=== PATIENT | male | born 1945 | race Caucasian/White ===

== ENCOUNTER 2020-12-03 08:55 | Outpatient (REF) | payer MEDICARE, SELFPAY ==
[2020-12-03 10:47] LABS: Alanine Aminotransferase 18 U/L (0-40); Albumin Level 4.2 g/dL (3.5-5.0); Alkaline Phosphatase 55 U/L (39-117); Anion Gap 13 (12-20); Aspartate Amino Transferase 24 U/L (5-37); Bilirubin Total 0.8 mg/dL (0.0-1.0); Blood Urea Nitrogen 9 mg/dL (9-16); Calcium 9.4 mg/dL (8.4-10.2); Carbon Dioxide 28 mmol/L (22-29); Chloride 102 mmol/L (96-108); Estimated Glomerular Filt Rate > 60; Glucose Fasting 110 mg/dL (60-99); Potassium 4.3 mmol/L (3.3-5.1); Sodium 139 mmol/L (135-145)
== END 2020-12-03 08:56 | disposition home or self-care (01) ==
LOC: HO.LAB 08:55
PROVIDERS: PCP Internal Medicine; Visit Provider Nurse Practitioner Family
DX: Z13.1 Encounter for screening for diabetes mellitus (principal)
CPT/HCPCS: 36415; 80053

== ENCOUNTER 2020-12-06 12:01 | Outpatient (REF) | payer MEDICARE, SELFPAY ==
--- NOTE | ~2020-12-06 | XR_ITS ---
EXAMINATION: XR KNEE, LEFT CLINICAL INFORMATION: Pain. COMPARISON: Most recent left knee radiographs dated 01/10/2018. TECHNIQUE: 4 views of the left knee. FINDINGS: Severe medial compartment joint space narrowing with subchondral sclerosis and focal subchondral cystic change. Tricompartmental marginal osteophytes. No acute fracture or dislocation. Trace joint effusion. XR/XR knee LT 2V IMPRESSION: Tricompartmental osteoarthritis, most severe within the medial compartment. Findings are slightly progressed when compared to the prior examination. Trace joint effusion.
== END 2020-12-06 12:02 | disposition home or self-care (01) ==
LOC: HO.XRAY 12:01
PROVIDERS: PCP Internal Medicine; Visit Provider Internal Medicine
DX: M25.562 Pain in left knee (principal)
CPT/HCPCS: 73560

== ENCOUNTER → 2020-12-26 08:42 | Outpatient (BNVA) | payer MEDICARE, SELFPAY | PROVIDERS: PCP Internal Medicine; Visit Provider Physician Assistant | DX: M17.12 Unilateral primary osteoarthritis, left knee (principal) | CPT/HCPCS: 20610; 99202; J1040 ==

== ENCOUNTER → 2021-02-07 09:43 | Outpatient (BNVA) | payer MEDICARE, SELFPAY | PROVIDERS: PCP Internal Medicine; Visit Provider Physician Assistant | DX: M17.12 Unilateral primary osteoarthritis, left knee (principal) | CPT/HCPCS: 99212 ==

== ENCOUNTER 2021-02-25 10:00 | Outpatient (RCR) | payer MEDICARE, SELFPAY ==
--- NOTE | 2021-02-07 07:45 | MHC.PT.OD ---
[facility] [place] Office [place] Office [place] Office [address] Jimmie Pollard [address] [phone] F: [phone] F: [phone] F: [phone] F: [phone] Physical Therapy Daily Note Diagnosis: Unilateral primary OA L knee signed by Cleo Black PA-C date of referral 12/26/20 Date of Surgery: Date of Evaluation: 12/31/20 Date of Treatment: 02/06/21 Treatments to Date: Cancellations to Date: No Shows to Date: Authorized Visits: 6 Insurance End Date: Precautions/ Contraindications:HTN, L knee medial OA severe per xray Subjective: Doing better but I still dont feel confident carrying something and going down the stairs. Pain Score and Location: Objective Flowsheet: Tests & Measures Full extension today AROM Exercises Reviewed progression of using gentle gradual resistance for home bike- pt currently states has been able to bike 25 minutes with good tolerance, we discussed progression of increasing time on bike, use of various strenth settings Step up and step down from 8 inch with use of unilateral rail with and without holding 8.8 lb med ball, BOSU step ups and step down (blue side up) leading with L LE with use of unilateral rail with and without holding 8.8 lb med ball, lateral step ups onto bosu leading with L>R LE and R>L LE with use of unilateral rail multi step lateral and frontal heel touches from 4 inch L LE in stance x 2 [id number], Wobble board weight shifts balancing in coronal plane x 2 sets 10R with cues for weight shift. Prone for STM to distal HS> gastroc soleus complex; HS followed by four I strips (applied in knee ext stretch) for support/stretch HS proximal gastroc soleus complex. Encouragement to resume walking program, self care for education with bike, review with stretching program Modalities US at noted above Assessment: Pt presents with full knee extension, reports overall less pain in the knee. Pt expressing would like to continue PT 1x/weekly to progress CKC and higher level stab program to improve confidence for carrying objects up/down stairs. To see ortho tomorrow re: follow up. Pt encouraged to continue walking progam, bike program, and advance to 3 sets of 10R 4 way SLR as able (has been doing 20). PT Plan: flexbility program gastroc soleus HS, bike, SLR into flexion 4 way SLR for strengthening Short Term Goals: 1. Pt will demonstrate L knee AROM ext to 0 degrees. 2. Strength SLR to good on L LE. 3. Initiate HEP program with education re: self care. 4. Reduce L knee pain by 25% during ADLs/IADLS. Composition Siding Worker Goals: 1. AROM L knee 0-130 degrees. 2. Strength L knee A) SLR 5/5, B) HS 5/5. 3. Resume walking program MOD I. 4. Demonstrate functional squat with good technique. 5. Negotiate a flight of stairs Electronically signed by: Jodi Bañuelos, PT, DPT
--- NOTE | 2021-02-25 11:55 | MHC.PT.OD ---
[facility] [place] Office [place] Office [place] Office [address] Jimmie Pollard [address] [phone] F: [phone] F: [phone] F: [phone] F: [phone] Physical Therapy Daily Note Diagnosis: Unilateral primary OA L knee signed by Cleo Black PA-C date of referral 12/26/20 Date of Surgery: Date of Evaluation: 12/31/20 Date of Treatment: 02/25/21 Treatments to Date: Cancellations to Date: No Shows to Date: Authorized Visits: 8 Insurance End Date: Precautions/ Contraindications:HTN, L knee medial OA severe per xray Subjective: Just out of the blue its puffy back there again. I had been wearing the compressive sleeve, now its sore in the front. Pain Score and Location: Objective Flowsheet: Tests & Measures R LE AROM 0 to 138 degres L LE -3 to 125 sx end range flexion, Noted bulge posterior knee crease consistent for potential bakers cyst (Pt reports previous history of one in same knee) Tenderness noted posterior L knee Anterior medial joint line- severe OA noted on xray L knee 36cm 37 cm 32.5 cm R knee 36 cm 36 cm infra 32.0 cm 10 [facility] [address] [place] [address] Office Visit Report Signed Patient: Geovani Rosa EMR#: [id number] : [id number]:[id number] Age/Sex: 75 / MADM/SER Date: 02/07/21 Loc: HO.HOSADM/SER Time:942 Attending Provider: Jin Black PA-C cc: Jroge A Elliott MD; Jin Black PA-C~ Intake Vital Signs 02/07/21 09:48 Height 5 ft 8 in Weight 173 lb BMI 26.3 Temp 97.3 F Temp Source Temporal Artery Scan Intake Visit Reasons: ov- s/p L knee inj Intake Note: Geovani presents here today for s/p Left knee inj 12/26/2020. He states he has been doing good with PT and the injection he recieved. He does have some anterior knee discomfort but states PT has been working with him. Allergies No Known Allergies [No Known Allergies*] Allergy (Verified 12/26/20 08:46) HPI ov- s/p L knee inj HPI Details 75-year-old gentleman who returns to the office today approximately 6 weeks status post left knee injection. He has been doing physical therapy and he feels that he is getting good relief from both. He is able to perform daily activities without any discomfort. [facility] Medical History Hypertension Screening for diabetes mellitus Surgical History H/O rectal polypectomy History of colonoscopy History of surgery History of tonsillectomy Family History Father Cancer Mother Heart disease Brother No problems noted. Brother No problems noted. Sister No problems noted. Sister No problems noted. Sister No problems noted. Son No problems noted. Daughter No problems noted. Daughter No problems noted. Family/Other Diabetes Social History Alcohol intake: never Patient Tobacco Use Status: Former Tobacco user Years Smoked: 20 years Current occupational status: retired Current occupation: rt hand Review of Systems Const All systems reviewed & are unremarkable except as noted in HPI and below Physical Exam Vital Signs: Last Vital Signs Temp 97.3 F 02/07/21 09:48 BMI result Body Mass Index 26.3 Extrem Other: Left knee normal to inspection. No joint effusion. Full range of motion with crepitus. Calf supple nontender. Assessment & Plan Assessment & Plan (1) Arthritis of left knee: Code(s): M17.12 - Unilateral primary osteoarthritis, left knee Plan: 75-year-old gentleman with left knee arthritis. He had significant relief with the injection and continues to work with physical therapy. I told him that he can have an injection every 3-6 months as needed. If symptoms arise he will contact our office otherwise p.r.n. Coding Level of Care Code Est Pt Level 3 (92527) Diagnoses Arthritis of left knee M17.12 Documented By:Jin Black02/07/21 0992 Signed By:<Electronically signed by Kain-Tashia Black>02/07/21 0957 Exercises Encouragement to continue with HEP bike program Review of 4 way SLR, TKE, gastroc/hs stretches hep program prostretch Reassessment strength girth, rom as noted above Unable to perform SLS due to pain L knee, fair unsupported functional squat- limited tolerance for mini wall slide due to pain anterior knee Pt given educational handout re: acevedo's cyst to increase patient questions he had around such a condition- reports [facility] diagnosed him as having one in L knee in the past. Passive knee extension stretch with heel prop for icing x 10 minute post eval/tx. Educated in use for home. Wobble board weight shifts balancing in coronal plane x 2 sets 10R with cues for weight shift. Prone for STM to distal HS> gastroc soleus complex via HG #8 in effort to increase tissue extensibility; HS followed by four I strips ROCKTAPE (applied in knee ext stretch) for support/stretch HS proximal gastroc soleus complex. Pt advised to back off from use of compressive sleeve as this is what he has been doing differently over the past few days. Phone call placed to orthopedics to aide in patient getting an appt for follow up 03/27 at 3:30 pm - Cleo Black PA-C. Modalities Prone for continuous US 1.2 yu cm2 3.3MHz to R proximal gastroc soleus complex in effort to increase tissue extensibilituy. Assessment: Pt demonstrates signs and symptoms consistent with L bakers cyst presents with decline in active knee extension, palpable edema posterior crease of L knee. ROM mildly impaired compared to R Knee. He has improved strength of quad since starting therapy. He has begun to demonstrate plateauing progress with therapy and is compliant with a daily stretching, biking program at home. He was encouraged to perform passive knee extension stretch at home and initiate icing in conjunction with current stretching program. PT Plan: flexbility program gastroc soleus HS, bike, SLR into flexion 4 way SLR for strengthening Short Term Goals: 1. Pt will demonstrate L knee AROM ext to 0 degrees. 2. Strength SLR to good on L LE. 3. Initiate HEP program with education re: self care. 4. Reduce L knee pain by 25% during ADLs/IADLS. R&D Lab Technician Goals: 1. AROM L knee 0-130 degrees. 2. Strength L knee A) SLR 07/10, B) HS 07/10. 3. Resume walking program MOD I. 4. Demonstrate functional squat with good technique. 5. Negotiate a flight of stairs Electronically signed by: Jodi Bañuelos, PT, DPT
== END 2021-07-08 07:52 | disposition home or self-care (01) ==
LOC: HO.PTWFD 10:00
PROVIDERS: Visit Provider Physician Assistant
DX: M17.12 Unilateral primary osteoarthritis, left knee (principal)
CPT/HCPCS: 97035; 97110; 97140; 97161; 97535

== ENCOUNTER → 2021-03-27 15:13 | Outpatient (BNVA) | payer MEDICARE, SELFPAY | PROVIDERS: PCP Internal Medicine; Visit Provider Physician Assistant | DX: M17.12 Unilateral primary osteoarthritis, left knee (principal) | CPT/HCPCS: 20610; 99212; J1040 ==

== ENCOUNTER 2021-09-02 09:13 | Outpatient (REF) | payer MEDICARE, SELFPAY ==
[2021-09-02 09:40] LABS: MANUAL DIFF FLAG NO
[2021-09-02 10:31] LABS: Basophils Percent Auto 0.6 % (0-2); Eosinophils Absolute Auto 0.1 X10*3/uL (0.0-0.4); Eosinophils Percent Auto 2.1 % (0-4); Hematocrit 43.4 % (42.0-52.0); Hemoglobin 14.8 g/dl (14.0-18.0); Imm Gran Abs Auto 0.01 X10*3/uL (0.00-0.03); Imm Gran Pct Auto 0.2 % (0.0-0.4); Lymphocytes Absolute Auto 1.7 X10*3/uL (1.2-4.9); Lymphocytes Percent Auto 34.4 % (20-40); Mean Corpuscular HGB Conc 34.1 g/dl (31.0-36.0); Mean Corpuscular Hemoglobin 29.2 pg (27.0-33.0); Mean Corpuscular Volume 85.8 fL (80.0-98.0); Mean Platelet Volume 8.8 fL (9.4-12.4); Monocytes Absolute Auto 0.3 X10*3/uL (0.1-1.2); Monocytes Percent Auto 6.4 % (2-11); Neutrophils Absolute Auto 2.7 x10*3/uL (2.0-8.3); Neutrophils Percent Auto 56.3 % (45-73); Platelet Count 292 X10*3/uL (160-400); Red Blood Count 5.06 X10*6/uL (4.60-5.80); White Blood Count 4.8 X10*3/uL (4.8-10.8)
[2021-09-02 11:18] LABS: Alanine Aminotransferase 16 U/L (0-40); Albumin Level 4.2 g/dL (3.5-5.0); Alkaline Phosphatase 54 U/L (39-117); Anion Gap 8 (12-20); Aspartate Amino Transferase 21 U/L (5-37); Bilirubin Total 0.6 mg/dL (0.0-1.0); Blood Urea Nitrogen 11 mg/dL (9-16); Calcium 9.3 mg/dL (8.4-10.2); Carbon Dioxide 33 mmol/L (22-29); Chloride 102 mmol/L (96-108); Cholesterol 214 mg/dL; Estimated Glomerular Filt Rate > 60; Glucose Fasting 109 mg/dL (60-99); HDL Cholesterol 46 mg/dL; LDL Cholesterol Calculated 143 mg/dl; Potassium 4.4 mmol/L (3.3-5.1); Sodium 139 mmol/L (135-145); Total Protein 6.9 g/dL (6.5-8.0); Triglycerides 127 mg/dL
== END 2021-09-02 09:14 | disposition home or self-care (01) ==
LOC: HO.LAB 09:13
PROVIDERS: PCP Internal Medicine; Visit Provider Internal Medicine
DX: Z00.00 Encounter for general adult medical examination without abnormal findings (principal); I10 Essential (primary) hypertension; Z13.0 Encounter for screening for diseases of the blood and blood-forming organs and certain disorders involving the immune mechanism
CPT/HCPCS: 36415; 80053; 80061; 85025

== ENCOUNTER 2021-12-02 08:48 | Outpatient (REF) | payer MEDICARE, SELFPAY ==
--- NOTE | ~2021-12-02 | US_ITS ---
EXAMINATION: US RETROPERITONEAL LIMITED (RENAL ONLY) CLINICAL INFORMATION: Flank pain. COMPARISON: CT abdomen and pelvis 09/12/2010. X-ray abdomen KUB 08/28/2010. TECHNIQUE: Real-time imaging of the kidneys. FINDINGS: RIGHT KIDNEY: 10.5 x 6.6 x 4.4 cm (SAG x AP x TRV). The kidney is normal in size, contour, and echogenicity. Renal cortical thickness is normal. No calculi or focal parenchymal lesions. No hydronephrosis. LEFT KIDNEY: 11.5 x 5.3 x 4.4 cm (SAG x AP x TRV). The kidney is normal in size, contour, and echogenicity. Renal cortical thickness is normal. No calculi or focal parenchymal lesions. No hydronephrosis. US/US renal BI IMPRESSION: Unremarkable examination.
== END 2021-12-02 08:49 | disposition home or self-care (01) ==
LOC: HO.US 08:48
PROVIDERS: Visit Provider Internal Medicine
DX: R10.9 Unspecified abdominal pain (principal)
CPT/HCPCS: 76775

== ENCOUNTER → 2022-05-08 11:15 | Outpatient (BNVA) | payer MEDICARE, SELFPAY | PROVIDERS: PCP Internal Medicine; Visit Provider Physician Assistant | DX: M17.12 Unilateral primary osteoarthritis, left knee (principal); M71.22 Synovial cyst of popliteal space [Baker], left knee; I10 Essential (primary) hypertension | CPT/HCPCS: 20610; 99212; J1040 ==

== ENCOUNTER 2022-08-25 09:33 | Outpatient (REF) | payer MEDICARE, SELFPAY ==
[2022-08-25 09:46] LABS: MANUAL DIFF FLAG NO
[2022-08-25 10:25] LABS: Basophils Absolute Auto 0.1 X10*3/uL (0.0-0.2); Basophils Percent Auto 1.5 % (0-2); Eosinophils Absolute Auto 0.1 X10*3/uL (0.0-0.4); Eosinophils Percent Auto 1.5 % (0-4); Hematocrit 43.5 % (42.0-52.0); Imm Gran Abs Auto 0.01 X10*3/uL (0.00-0.03); Imm Gran Pct Auto 0.2 % (0.0-0.4); Lymphocytes Absolute Auto 1.9 X10*3/uL (1.2-4.9); Mean Corpuscular HGB Conc 34.5 g/dl (31.0-36.0); Mean Corpuscular Hemoglobin 29.6 pg (27.0-33.0); Mean Corpuscular Volume 85.8 fL (80.0-98.0); Mean Platelet Volume 9.2 fL (9.4-12.4); Monocytes Absolute Auto 0.3 X10*3/uL (0.1-1.2); Monocytes Percent Auto 6.5 % (2-11); Neutrophils Absolute Auto 2.5 x10*3/uL (2.0-8.3); Neutrophils Percent Auto 51.3 % (45-73); Platelet Count 238 X10*3/uL (160-400); Red Blood Count 5.07 X10*6/uL (4.60-5.80); Red Cell Distribution Width 14.2 % (11.0-16.0); White Blood Count 4.8 X10*3/uL (4.8-10.8)
[2022-08-25 11:16] LABS: Alanine Aminotransferase 14 U/L (0-40); Albumin Level 4.2 g/dL (3.5-5.0); Alkaline Phosphatase 56 U/L (39-117); Anion Gap 15 (12-20); Aspartate Amino Transferase 24 U/L (5-37); Bilirubin Total 1.1 mg/dL (0.0-1.0); Blood Urea Nitrogen 9 mg/dL (9-16); Calcium 9.7 mg/dL (8.4-10.2); Carbon Dioxide 28 mmol/L (22-29); Chloride 101 mmol/L (96-108); Estimated Glomerular Filt Rate > 60; Glucose Fasting 105 mg/dL (60-99); Potassium 3.2 mmol/L (3.3-5.1); Sodium 141 mmol/L (135-145); Total Protein 7.1 g/dL (6.5-8.0)
[2022-08-25 11:21] LABS: Thyroid Stimulating Hormone 2.55 uIU/mL (0.32-4.0)
== END 2022-08-25 09:34 | disposition home or self-care (01) ==
LOC: HO.LAB 09:33
PROVIDERS: PCP Internal Medicine; Visit Provider Internal Medicine
DX: E03.9 Hypothyroidism, unspecified (principal); N28.9 Disorder of kidney and ureter, unspecified; D64.9 Anemia, unspecified
CPT/HCPCS: 36415; 80053; 84443; 85025

== ENCOUNTER 2023-01-21 09:20 | Outpatient (AMB) | payer MEDICARE, SELFPAY ==
[2023-01-21 09:25] VITALS: BP 148/70; PULSE 57; O2SAT 98; BMI 25.8
--- NOTE | 2023-01-21 09:25 | A.OFFPC_ITS ---
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: Not Required per policy Accompanied by: Self / Same As Patient Allergies No Known Allergies [No Known Allergies*] Allergy (Verified 01/21/23 09:26) Medication List - Last Reconciled 01/21/23 by Jorge A Elliott MD hydrochlorothiazide 25 mg PO DAILY metoprolol tartrate 50 mg PO DAILY Tobacco use date assessed: 09/11/22 Fall risk assessment: No Falls in past year Last assessed Fall Risk: 01/21/23 Dental Screening Dental Screen Date: 01/21/23 Did you have a dental visit in the last 12 months?: Yes Did you have a dental problem in the last 6 months where you did not have access to dental care?: No Was dental information given to patient?: Patient has dentist HPI 4 month f/u HPI Details HT on Rx; doing well; compliant [facility] Medical History Hypertension Screening for diabetes mellitus Surgical History H/O rectal polypectomy History of colonoscopy History of surgery History of tonsillectomy Family History Father Cancer Mother Heart disease Brother No problems noted. Brother No problems noted. Sister No problems noted. Sister No problems noted. Sister No problems noted. Son No problems noted. Daughter No problems noted. Daughter No problems noted. Family/Other Diabetes Social History Housing: House Alcohol intake: never Patient Tobacco Use Status: Former Tobacco user Years Smoked: 20 years e-Cigarette/Vaping Use: Never Used Second Hand Smoke Exposure: No service: No Current occupational status: retired Current occupation: rt hand Cognitive needs: No Hearing needs: No Vision needs: Yes Questionnaire PHQ-9 Over the last 2 weeks, how often have you been bothered by any of the following problems? Depression Screening Interpretation: Negative Depression Screening Done: Yes Source: Developed by Drs. Phan Frias, Maureen Ortiz, Yao Rausch and colleagues, with an educational josey from [employer]. Thrive Questionnaire Date Thrive assessed: 01/21/23 I am a: Patient What is your living situation today?: I have a steady place to live Within the past 12 months, did the food you bought not last and you didn't have the money to get more?: Never true Within the past 12 months, did you worry whether your food would run out before you got money to buy more?: Never true Do you have trouble paying for medicines?: No Do you have trouble getting transportation to medical appointments?: No Do you have trouble paying your heating and electricity bill?: No Do you have trouble taking care of your child, family member or friend?: No Do you have trouble with day-to-day activities such as bathing, preparing meals, shopping, managing finances, etc.?: No Are you currently unemployed and looking for a job?: No Are you interested in more education?: No Please select the resources that you would like help with: None AUDIT C Alcohol Use Questionnaire (AUDIT-C) 1. How often do you have a drink containing alcohol?: Never Total Score: 0 Score Reviewed/Action Taken: Yes UFNMI-7 AMB Questionnaire FUNMI-7 Date FUNMI - 7 assessed: 05/12/22 Source: Developed by Drs. Phan Frias, Maureen Ortiz, Yao Rausch and colleagues, with an educational josey from [employer]. Review of Systems Const Denies chills, Denies headache(s) and Denies weight loss ENT Denies headache(s) Card Denies chest pain, Denies syncope, Denies irregular heart rhythm and Denies d yspnea Resp Denies chest congestion, Denies cough and Denies dyspnea GI Denies abdominal pain, Denies change in stool character, Denies nausea and Den ies vomiting Musc Denies deformity and Denies joint swelling Neuro Denies syncope and Denies headache(s) Physical exam (Primary Care) Vital Signs: Last Vital Signs Pulse 57 01/21/23 09:25 BP 148/70 H 01/21/23 09:25 Pulse Ox 98 01/21/23 09:25 Oxygen Delivery Method Room Air 01/21/23 09:25 BMI result Body Mass Index 25.8 Tobacco/Smoking Status: Tobacco use Status Tobacco use date assessed 09/11/22 01/21/23 09:29 Patient Tobacco Use Status Former Tobacco user 01/21/23 09:29 e-Cigarette/Vaping Use Never Used 01/21/23 09:29 Depression Screening Interpretation: Negative Thrive Assessment: Date of Thrive Assessment Date Thrive assessed 01/21/23 01/21/23 09:29 Const General: cooperative, comfortable, no acute distress and alert Neck Neck: Yes no lymphadenopathy Thyroid: Thyroid normal Resp Effort & Inspection: normal respiratory effort Auscultation: clear to auscultation bilaterally Percussion: percussion normal Cardio Jugular venous distension: no JVD Palpation: normal PMI Rate: regular rate Rhythm: regular rhythm Heart sounds: S1 normal heart sound present and S2 normal heart sound present GI Inspection: Yes normal to inspection Palpation (GI): No hepatosplenomegaly present Skin General skin exam: no rashes or lesions noted Extrem General: Yes no clubbing, cyanosis or edema Assessment and Plan Assessment & Plan (1) Hypertension: Code(s): I10 - Essential (primary) hypertension Qualifiers: Hypertension type: unspecified Qualified Code(s): I10 - Essential (primary) hypertension Plan: stable; same rx Coding Level of Care Code Est Pt Level 3 (79990) Diagnoses Hypertension, unspecified type I10 Hypertension type: unspecified
== END 2023-01-21 09:40 | disposition home or self-care (01) ==
PROVIDERS: PCP Internal Medicine; Visit Provider Internal Medicine
DX: I10 Essential (primary) hypertension (principal)
CPT/HCPCS: 99213

== ENCOUNTER 2023-05-17 09:21 | Outpatient (REF) | payer MEDICARE, SELFPAY ==
[2023-05-17 09:41] LABS: MANUAL DIFF FLAG NO
[2023-05-17 10:51] LABS: Basophils Absolute Auto 0.1 X10*3/uL (0.0-0.2); Basophils Percent Auto 0.9 % (0-2); Eosinophils Absolute Auto 0.1 X10*3/uL (0.0-0.4); Eosinophils Percent Auto 1.9 % (0-4); Hemoglobin 15.5 g/dl (14.0-18.0); Imm Gran Abs Auto 0.01 X10*3/uL (0.00-0.03); Imm Gran Pct Auto 0.2 % (0.0-0.4); Lymphocytes Absolute Auto 1.9 X10*3/uL (1.2-4.9); Lymphocytes Percent Auto 35.3 % (20-40); Mean Corpuscular HGB Conc 34.4 g/dl (31.0-36.0); Mean Corpuscular Hemoglobin 29.6 pg (27.0-33.0); Mean Platelet Volume 9.1 fL (9.4-12.4); Monocytes Absolute Auto 0.4 X10*3/uL (0.1-1.2); Neutrophils Absolute Auto 2.8 x10*3/uL (2.0-8.3); Neutrophils Percent Auto 53.7 % (45-73); Platelet Count 291 X10*3/uL (160-400); Red Blood Count 5.23 X10*6/uL (4.60-5.80); Red Cell Distribution Width 13.7 % (11.0-16.0); White Blood Count 5.3 X10*3/uL (4.8-10.8)
[2023-05-17 11:38] LABS: Alanine Aminotransferase 14 U/L (0-40); Albumin Level 4.3 g/dL (3.5-5.0); Alkaline Phosphatase 56 U/L (39-117); Anion Gap 11 (12-20); Aspartate Amino Transferase 22 U/L (5-37); Bilirubin Total 0.7 mg/dL (0.0-1.0); Blood Urea Nitrogen 11 mg/dL (9-16); Calcium 9.6 mg/dL (8.4-10.2); Carbon Dioxide 30 mmol/L (22-29); Chloride 104 mmol/L (96-108); Cholesterol 209 mg/dL (<200); Estimated Glomerular Filt Rate > 60; Glucose Fasting 106 mg/dL (60-99); HDL Cholesterol 51 mg/dL (>40); LDL Cholesterol Calculated 133 mg/dL (<100); Potassium 3.9 mmol/L (3.3-5.1); Sodium 141 mmol/L (135-145); Total Protein 7.3 g/dL (6.5-8.0); Triglycerides 126 mg/dL (<150)
== END 2023-05-17 09:22 | disposition home or self-care (01) ==
LOC: HO.LAB 09:21
PROVIDERS: PCP Internal Medicine; Visit Provider Internal Medicine
DX: D64.9 Anemia, unspecified (principal); E78.5 Hyperlipidemia, unspecified; N28.9 Disorder of kidney and ureter, unspecified
CPT/HCPCS: 36415; 80053; 80061; 85025

== ENCOUNTER 2023-05-25 11:19 | Outpatient (AMB) | payer MEDICARE, SELFPAY ==
[2023-05-25 11:22] VITALS: BP 118/80; PULSE 76; O2SAT 98; BMI 26.0
--- NOTE | 2023-05-25 11:22 | MHC.PC.OV ---
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 Animal Assisted Therapist: Not Required per policy Accompanied by: Self / Same As Patient Allergies No Known Allergies [No Known Allergies*] Allergy (Verified 05/25/23 11:23) Medication List - Last Reconciled 05/25/23 by Jorge A Elliott MD hydrochlorothiazide 25 mg PO DAILY metoprolol tartrate 50 mg PO DAILY Tobacco use date assessed: 05/25/23 Fall risk assessment: No Falls in past year Last assessed Fall Risk: 05/25/23 Dental Screening Dental Screen Date: 05/25/23 Did you have a dental visit in the last 12 months?: Yes Did you have a dental problem in the last 6 months where you did not have access to dental care?: No Was dental information given to patient?: Patient has dentist HPI 4 Month F/U HPI Details HTN on Rx; doing well and compliant [facility] Medical History Hypertension Screening for diabetes mellitus Surgical History History of colonoscopy History of surgery H/O rectal polypectomy History of tonsillectomy Family History Father Cancer Mother Heart disease Brother No problems noted. Brother No problems noted. Sister No problems noted. Sister No problems noted. Sister No problems noted. Son No problems noted. Daughter No problems noted. Daughter No problems noted. Family/Other Diabetes Social History Housing: House Alcohol intake: never Patient Tobacco Use Status: Former Tobacco user Years Smoked: 20 years e-Cigarette/Vaping Use: Never Used Second Hand Smoke Exposure: No service: No Current occupational status: retired Current occupation: rt hand Cognitive needs: No Hearing needs: No Vision needs: Yes (glasses) Questionnaire PHQ-9 Over the last 2 weeks, how often have you been bothered by any of the following problems? 1. Little interest or pleasure in doing things: not at all 2. Feeling down, depressed, or hopeless: not at all 3. Trouble falling or staying asleep, or sleeping too much: not at all 4. Feeling tired or having little energy: not at all 5. Poor appetite or overeating: not at all 6. Feeling bad about yourself - or that you are a failure or have let yourself or your family down: not at all 7. Trouble concentrating on things, such as reading the newspaper or watching television: not at all 8. Moving or speaking so slowly that other people could have noticed. Or the opposite - being so fidgety or restless that you have been moving around a lot more than usual: not at all 9. Thoughts that you would be better off or of hurting yourself in some way: not at all Total score: 0 Depression Screening Interpretation: Negative Depression Screening Done: Yes 13162 - PHQ-9 Billing: Yes Source: Developed by Drs. Phan Frias, Maureen Ortiz, Yao Rausch and colleagues, with an educational josey from [employer]. Thrive Questionnaire Date Thrive assessed: 05/25/23 I am a: Patient What is your living situation today?: I have a steady place to live Within the past 12 months, did the food you bought not last and you didn't have the money to get more?: Never true Within the past 12 months, did you worry whether your food would run out before you got money to buy more?: Never true Do you have trouble paying for medicines?: No Do you have trouble getting transportation to medical appointments?: No Do you have trouble paying your heating and electricity bill?: No Do you have trouble taking care of your child, family member or friend?: No Do you have trouble with day-to-day activities such as bathing, preparing meals, shopping, managing finances, etc.?: No Are you currently unemployed and looking for a job?: No Are you interested in more education?: No Please select the resources that you would like help with: None THRIVE Score: 0 AUDIT C Alcohol Use Questionnaire (AUDIT-C) 1. How often do you have a drink containing alcohol?: Never Total Score: 0 Score Reviewed/Action Taken: Yes FUNMI-7 AMB Questionnaire FUNMI-7 Date FUNMI - 7 assessed: 05/25/23 Feeling nervous, anxious, or on edge: 0 = Not at all Not being able to stop or control worryin = Not at all Worrying too much about different things: 0 = Not at all Trouble relaxin = Not at all Being so restless that it is hard to sit still: 0 = Not at all Becoming easily annoyed or irritable: 0 = Not at all Feeling afraid as if something awful might happen: 0 = Not at all Total FUNMI-7 score (0-4 normal; 5-9 mild; 10-14 moderate; 15-21 severe): 0 Source: Developed by Drs. Phan Frias, Maureen Ortiz, Yao Rausch and colleagues, with an educational josey from [employer]. FUNMI-7 Assessment Billing FUNMI-7 Assessment Tool: FUNMI-7 Assessment 89469 Review of Systems Const Denies chills, Denies headache(s) and Denies weight loss ENT Denies headache(s) Card Denies chest pain, Denies syncope, Denies irregular heart rhythm and Denies dyspnea Resp Denies chest congestion, Denies cough and Denies dyspnea GI Denies abdominal pain, Denies change in stool character, Denies nausea and Denies vomiting Musc Denies deformity and Denies joint swelling Neuro Denies syncope and Denies headache(s) Physical exam (Primary Care) Vital Signs: Last Vital Signs Pulse 76 05/25/23 11:22 BP 118/80 05/25/23 11:22 Pulse Ox 98 05/25/23 11:22 Oxygen Delivery Method Room Air 05/25/23 11:22 BMI result Body Mass Index 26.0 Tobacco/Smoking Status: Tobacco use Status Tobacco use date assessed 05/25/23 05/25/23 11:24 Patient Tobacco Use Status Former Tobacco user 05/25/23 11:24 e-Cigarette/Vaping Use Never Used 05/25/23 11:24 PHQ-9: PHQ-9 Score PHQ-9: Total score 0 05/25/23 11:24 Depression Screening Interpretation: Negative Thrive Assessment: Date of Thrive Assessment Date Thrive assessed 05/25/23 05/25/23 11:24 Const General: cooperative, comfortable, no acute distress and alert Neck Neck: Yes no lymphadenopathy Thyroid: Thyroid normal Resp Effort & Inspection: normal respiratory effort Auscultation: clear to auscultation bilaterally Percussion: percussion normal Cardio Jugular venous distension: no JVD Palpation: normal PMI Rate: regular rate Rhythm: regular rhythm Heart sounds: S1 normal heart sound present and S2 normal heart sound present GI Inspection: Yes normal to inspection Palpation (GI): No hepatosplenomegaly present Skin General skin exam: no rashes or lesions noted Extrem General: Yes no clubbing, cyanosis or edema Assessment and Plan Assessment & Plan (1) Hypertension: Code(s): I10 - Essential (primary) hypertension Qualifiers: Hypertension type: unspecified Qualified Code(s): I10 - Essential (primary) hypertension Plan: stable; same rx Orders: Orders Complete Blood Count Auto Diff Today D64.9 - Anemia, unspecified Thyroid Stimulating Hormone Today E03.9 - Hypothyroidism, unspecified Comprehensive [place]. Panel Fast Today N28.9 - Disorder of kidney and ureter, unspecified Lipid Panel Today E78.5 - Hyperlipidemia, unspecified Prostate Specific Antigen Scr Today Z00.00 - Encounter for general adult medical examination without abnormal findings Coding Level of Care Code Est Pt Level 3 (74860) Diagnoses Hypertension, unspecified type I10 Hypertension type: unspecified Additional Codes FUNMI-7 Assessment Billing - FUNMI-7 Assessment Tool: FUNMI-7 Assessment [id number] ([id number])
== END 2023-05-25 11:34 | disposition home or self-care (01) ==
PROVIDERS: PCP Internal Medicine; Visit Provider Internal Medicine
DX: I10 Essential (primary) hypertension (principal)
CPT/HCPCS: 99213

== ENCOUNTER 2023-09-28 09:31 | Outpatient (AMB) | payer MEDICARE, SELFPAY ==
[2023-09-28 09:32] VITALS: BP 126/82; PULSE 86; O2SAT 98; BMI 25.5
--- NOTE | 2023-09-28 09:32 | MHC.PC.OV ---
Vital Signs 09/28/23 09:32 Height 5 ft 8 in Weight 168 lb BMI 25.5 BP 126/82 Blood Pressure Location Lt brachial Position Sitting Pulse 86 Pulse Source Pulse Oximeter Pulse Oximetry (%) 98 Oxygen Delivery Method Room Air Intake Visit Reasons: 4mth f/u Family Dinner Service Specialist: Not Required per policy Accompanied by: Self / Same As Patient Allergies No Known Allergies [No Known Allergies*] Allergy (Verified 09/28/23 09:32) Tobacco use date assessed: 05/25/23 Fall risk assessment: No Falls in past year Last assessed Fall Risk: 09/28/23 Dental Screening Dental Screen Date: 05/25/23 HPI 4mth f/u HPI Details HTN on Rx; doing well; compliant [facility] Medical History Hypertension Screening for diabetes mellitus Surgical History History of colonoscopy History of surgery H/O rectal polypectomy History of tonsillectomy Family History Father Cancer Mother Heart disease Brother No problems noted. Brother No problems noted. Sister No problems noted. Sister No problems noted. Sister No problems noted. Son No problems noted. Daughter No problems noted. Daughter No problems noted. Family/Other Diabetes Social History Housing: House Alcohol intake: never Patient Tobacco Use Status: Former Tobacco user Years Smoked: 20 years e-Cigarette/Vaping Use: Never Used Second Hand Smoke Exposure: No service: No Current occupational status: retired Current occupation: rt hand Cognitive needs: No Hearing needs: No Vision needs: Yes (glasses) Questionnaire Thrive Questionnaire Date Thrive assessed: 05/25/23 FUNMI-7 AMB Questionnaire FUNMI-7 Date FUNMI - 7 assessed: 05/25/23 Source: Developed by Drs. Phan Frias, Maureen Ortiz, Yao Rausch and colleagues, with an educational josey from [employer]. Review of Systems Const Denies chills, Denies headache(s) and Denies weight loss ENT Denies headache(s) Card Denies chest pain, Denies syncope, Denies irregular heart rhythm and Denies dyspnea Resp Denies chest congestion, Denies cough and Denies dyspnea GI Denies abdominal pain, Denies change in stool character, Denies nausea and Denies vomiting Musc Denies deformity and Denies joint swelling Neuro Denies syncope and Denies headache(s) Physical exam (Primary Care) Vital Signs: Last Vital Signs Pulse 86 09/28/23 09:32 BP 126/82 09/28/23 09:32 Pulse Ox 98 09/28/23 09:32 Oxygen Delivery Method Room Air 09/28/23 09:32 BMI result Body Mass Index 25.5 Tobacco/Smoking Status: Tobacco use Status Tobacco use date assessed 05/25/23 09/28/23 09:33 Patient Tobacco Use Status Former Tobacco user 09/28/23 09:33 e-Cigarette/Vaping Use Never Used 09/28/23 09:33 Thrive Assessment: Date of Thrive Assessment Date Thrive assessed 05/25/23 09/28/23 09:33 Const General: cooperative, comfortable, no acute distress and alert Neck Neck: Yes no lymphadenopathy Thyroid: Thyroid normal Resp Effort & Inspection: normal respiratory effort Auscultation: clear to auscultation bilaterally Percussion: percussion normal Cardio Jugular venous distension: no JVD Palpation: normal PMI Rate: regular rate Rhythm: regular rhythm Heart sounds: S1 normal heart sound present and S2 normal heart sound present GI Inspection: Yes normal to inspection Palpation (GI): No hepatosplenomegaly present Skin General skin exam: no rashes or lesions noted Extrem General: Yes no clubbing, cyanosis or edema Assessment and Plan Assessment & Plan (1) Hypertension: Code(s): I10 - Essential (primary) hypertension Qualifiers: Hypertension type: unspecified Qualified Code(s): I10 - Essential (primary) hypertension Plan: stable; same rx Orders: Orders US arterial duplex LE RT Today I73.9 - Peripheral vascular disease, unspecified Lipid Panel Today Z13.220 - Encounter for screening for lipoid disorders Coding Level of Care Code Est Pt Level 3 (09528) Diagnoses Hypertension, unspecified type I10 Hypertension type: unspecified
== END 2023-09-28 09:50 | disposition home or self-care (01) ==
PROVIDERS: PCP Internal Medicine; Visit Provider Internal Medicine
DX: I10 Essential (primary) hypertension (principal)
CPT/HCPCS: 99213

== ENCOUNTER 2023-10-12 07:58 | Outpatient (REF) | payer MEDICARE, SELFPAY ==
--- NOTE | ~2023-10-12 | US_ITS ---
EXAMINATION: Noninvasive assessment of the right lower extremity with ARTERIAL DUPLEX CLINICAL INFORMATION: Hypertension, peripheral vascular disease TECHNIQUE: Duplex Doppler techniques with waveform analysis and measurement of velocities in the bilateral common femoral, profunda femoris, superficial femoral, popliteal and tibial arteries were performed. Additionally, ankle pulse volume recordings, ankle pressure measurements and ankle brachial indices were obtained of the lower extremity arterial system bilaterally. The study was performed only at rest. COMPARISON: None FINDINGS: DIRECT DUPLEX DOPPLER FINDINGS: RIGHT LEG: Common femoral artery: 122 cm/s, phasicity: Triphasic Profunda femoris artery: 59 cm/s, phasicity: Biphasic Superficial femoral artery (proximal): 81 cm/s, phasicity: Triphasic Superficial femoral artery (mid): 92 cm/s, phasicity: Triphasic Superficial femoral artery (distal): 74 cm/s, phasicity: Triphasic Popliteal artery: 64 cm/s, phasicity: Triphasic Posterior tibial artery: 77 cm/s, phasicity: Triphasic Peroneal artery: 49 cm/s, phasicity: Triphasic Anterior tibial artery: 72 cm/s, phasicity: Triphasic Dorsalis pedis artery: 96 cm/s, phasicity:Triphasic US/US arterial duplex LE RT IMPRESSION: No flow-limiting disease in the right lower extremity by velocity criteria. DANA Reference: - >1.4 = calcified vessels - 0.9 - 1.4 = normal - no significant arterial disease - 0.7 - 0.89 = mild peripheral arterial disease - 0.51 - 0.69 = moderate peripheral arterial disease - ? 0.50 = severe peripheral arterial disease - < .30 = critical arterial disease
== END 2023-10-12 07:59 | disposition home or self-care (01) ==
LOC: HO.US 07:58
PROVIDERS: PCP Internal Medicine; Visit Provider Internal Medicine
DX: I73.9 Peripheral vascular disease, unspecified (principal)
CPT/HCPCS: 93926

== ENCOUNTER 2023-10-18 14:47 | Outpatient (AMB) | payer MEDICARE, SELFPAY ==
--- NOTE | 2023-10-18 14:50 | MHC.OFFVIS ---
Vital Signs 10/18/23 14:52 Height 5 ft 8 in Weight 168 lb BMI 25.5 Intake Visit Reasons: INJ- LT Knee inj, last inj 05/08/22 Intake Note: Geovani an 78 year old male who presents today for a follow up of left knee, last injection on 05/08/22. Patient reports injections provide him with good relief and is requesting to repeat injection. States acevedo cyst is still present and causes some discomfort. Allergies No Known Allergies [No Known Allergies*] Allergy (Verified 10/18/23 14:56) Medication List - Last Reconciled 10/18/23 by Jin Black PA-C hydrochlorothiazide 25 mg PO DAILY metoprolol tartrate 50 mg PO DAILY HPI HPI INJ- LT Knee inj, last inj 05/08/22: Details: 78-year-old male who returns to the office today for a follow-up of left knee pain. He had his last injection on 05/08/22 which provided him good relief. He would like to repeat the injection. [facility] Medical History Hypertension Screening for diabetes mellitus Surgical History History of colonoscopy History of surgery H/O rectal polypectomy History of tonsillectomy Family History Father Cancer Mother Heart disease Brother No problems noted. Brother No problems noted. Sister No problems noted. Sister No problems noted. Sister No problems noted. Son No problems noted. Daughter No problems noted. Daughter No problems noted. Family/Other Diabetes Social History Housing: House Alcohol intake: never Patient Tobacco Use Status: Former Tobacco user Years Smoked: 20 years e-Cigarette/Vaping Use: Never Used Second Hand Smoke Exposure: No service: No Current occupational status: retired Current occupation: rt hand Cognitive needs: No Hearing needs: No Vision needs: Yes (glasses) Review of Systems Const All systems reviewed & are unremarkable except as noted in HPI and below Physical Exam Vital Signs: BMI result Body Mass Index 25.5 Extrem Other: Left knee normal to inspection.? No joint effusion.? Full range of motion with crepitus.? No specific tenderness along the medial or lateral aspect of the knee. Negative steinmans. Calf supple nontender. Office Procedures Joint Injection/Aspiration Joint Injection/Aspiration Primary Site: left knee Prep: site was prepped using aseptic technique, ethochloride spray was applied and injection warnings given Injected: 80 mg of, DepoMedrol, with 8 mL of, 1% plain lidocaine and in the joint Approach Used: anterolateral Procedure: The patient tolerated the procedure well and there was some relief with the local anesthesia Coding 56763 - Glenohumeral/Tronchanteric Bursa/Intraarticular Procedure code (CPT) selection complete Assessment & Plan Assessment & Plan (1) Arthritis of left knee: Code(s): M17.12 - Unilateral primary osteoarthritis, left knee Category: Medical Plan We discussed options today, which include steroid injection. The patient did consent to move forward with the left knee injection, which was tolerated well. I recommended rest, ice, and elevation and OTC anti-inflammatories as needed for discomfort. If symptoms persist or worsen over the next 6-8 weeks, patient will contact the office, otherwise follow-up as needed. Patient Instructions: Scribed for Jin Black PA-C, by [employer] medical appliance maker, on 10/18/2023 at 3:00 PM EST.? I, Jin Black PA-C, have personally reviewed and agree with the information entered by the scribe. Coding Level of Care Code Est Pt Level 3 (28758) Diagnoses Arthritis of left knee M17.12 CPT Codes Coding - Joint 7: 85402 - Glenohumeral/Tronchanteric Bursa/Intraarticular ([id number])
[2023-10-18 14:52] VITALS: BMI 25.5
== END 2023-10-18 15:08 | disposition home or self-care (01) ==
PROVIDERS: PCP Internal Medicine; Visit Provider Physician Assistant
DX: M17.12 Unilateral primary osteoarthritis, left knee (principal)
CPT/HCPCS: 20610; 99213

== ENCOUNTER → 2023-10-18 14:47 | Outpatient (BNVA) | payer MEDICARE, SELFPAY | PROVIDERS: PCP Internal Medicine; Visit Provider Physician Assistant | DX: M17.12 Unilateral primary osteoarthritis, left knee (principal) | CPT/HCPCS: 20610; 99212; J1010 ==

== ENCOUNTER 2023-10-29 10:16 | Outpatient (AMB) | payer MEDICARE, SELFPAY ==
[2023-10-29 10:23] VITALS: BMI 25.5
--- NOTE | 2023-10-29 10:23 | A.OFFVIS_ITS ---
Vital Signs 10/29/23 10:23 Height 5 ft 8 in Weight 168 lb BMI 25.5 Intake Visit Reasons: OV- Discuss PRP inj Intake Note: Geovani is an 78 year old male who presents today for a follow up of his left knee OA. He was last seen with Jin on 10/18/23 and had the left knee injected. He is looking to discuss PRP injections. Allergies No Known Allergies [No Known Allergies*] Allergy (Verified 10/29/23 10:24) HPI HPI OV- Discuss PRP inj : Details: Geovani is here today with ongoing bilateral knee discomfort. He is able to walk an hour a day but does notice occasional pain. He can not really say that the quality of his life is diminished. He has here because his right about ?stem cell injections?. HPI Comments Details: Geovani is an 78 year old male who presents today for a follow up of his left knee OA. He was last seen with Jin on 10/18/23 and had the left knee injected. He is looking to discuss PRP injections. [facility] Medical History Hypertension Screening for diabetes mellitus Surgical History History of colonoscopy History of surgery H/O rectal polypectomy History of tonsillectomy Family History Father Cancer Mother Heart disease Brother No problems noted. Brother No problems noted. Sister No problems noted. Sister No problems noted. Sister No problems noted. Son No problems noted. Daughter No problems noted. Daughter No problems noted. Family/Other Diabetes Social History Housing: House Alcohol intake: never Patient Tobacco Use Status: Former Tobacco user Years Smoked: 20 years e-Cigarette/Vaping Use: Never Used Second Hand Smoke Exposure: No service: No Current occupational status: retired Current occupation: rt hand Cognitive needs: No Hearing needs: No Vision needs: Yes (glasses) Physical Exam Vital Signs: BMI result Body Mass Index 25.5 Extrem Other: Varus deformity bilaterally with mild gait antalgia on the left. 5-125 degrees motion. 1+ varus instability Results Reviewed Results Reviewed: Varus pattern moderate to severe osteoarthritis bilateral knees Assessment & Plan Assessment & Plan (1) Arthritis of left knee: Code(s): M17.12 - Unilateral primary osteoarthritis, left knee Category: Medical Plan: This is a 78-year-old gentleman who is very functional with severe left knee osteoarthritis. He has no right knee pain and his left knee only bothers him after walking for about an hour occasionally going up and down stairs. We discussed treatment options including steroid injections, viscosupplementation, PRP as well as surgical options. At this point I think his function is too high to warrant surgery and his pain is 2 minimal to warrant injections. Should this change she will contact me. Coding Level of Care Code Est Pt Level 3 (09065) Diagnoses Arthritis of left knee M17.12
== END 2023-10-29 11:20 | disposition home or self-care (01) ==
PROVIDERS: PCP Internal Medicine; Visit Provider Orthopaedic Surgery
DX: M17.12 Unilateral primary osteoarthritis, left knee (principal)
CPT/HCPCS: 99213

== ENCOUNTER → 2023-10-29 10:16 | Outpatient (BNVA) | payer MEDICARE, SELFPAY | PROVIDERS: PCP Internal Medicine; Visit Provider Orthopaedic Surgery | DX: M17.12 Unilateral primary osteoarthritis, left knee (principal) | CPT/HCPCS: 99212 ==

== ENCOUNTER 2023-12-30 10:22 | Outpatient (AMB) | payer MEDICARE, SELFPAY ==
[2023-12-30 10:27] VITALS: BP 118/60; PULSE 64; O2SAT 97; BMI 24.5
--- NOTE | 2023-12-30 10:27 | MHC.PC.OV ---
Vital Signs 12/30/23 10:27 Height 5 ft 8 in Weight 161 lb BMI 24.5 BP 118/60 Blood Pressure Location Lt brachial Position Sitting Pulse 64 Pulse Source Pulse Oximeter Pulse Oximetry (%) 97 Oxygen Delivery Method Room Air Intake Visit Reasons: 3 Month F/U Glassine Machine Tender Required: No Accompanied by: Self / Same As Patient Allergies No Known Allergies [No Known Allergies*] Allergy (Verified 12/30/23 10:28) Medication List - Last Reconciled 12/30/23 by Jorge A Elliott MD hydrochlorothiazide 25 mg PO DAILY metoprolol tartrate 50 mg PO DAILY tamsulosin 0.4 mg PO DAILY Tobacco use date assessed: 05/25/23 Fall risk assessment: No Falls in past year Last assessed Fall Risk: 12/30/23 Dental Screening Dental Screen Date: 05/25/23 HPI 3 Month F/U HPI Details HTN on Rx; doing well; compliant with regimen [facility] Medical History Hypertension Screening for diabetes mellitus Surgical History History of colonoscopy History of surgery H/O rectal polypectomy History of tonsillectomy Family History Father Cancer Mother Heart disease Brother No problems noted. Brother No problems noted. Sister No problems noted. Sister No problems noted. Sister No problems noted. Son No problems noted. Daughter No problems noted. Daughter No problems noted. Family/Other Diabetes Social History Housing: House Alcohol intake: never Patient Tobacco Use Status: Former Tobacco user Tobacco use type: Cigarette Years Smoked: 20 years e-Cigarette/Vaping Use: Never Used Second Hand Smoke Exposure: No service: No Current occupational status: retired Current occupation: rt hand Cognitive needs: No Hearing needs: No Vision needs: Yes (glasses) Questionnaire Thrive Questionnaire Date Thrive assessed: 05/25/23 FUNMI-7 AMB Questionnaire FUNMI-7 Date FUNMI - 7 assessed: 05/25/23 Source: Developed by Drs. Phan Frias, Maureen Ortiz, Yao Rausch and colleagues, with an educational josey from [employer]. Review of Systems Const Denies chills, Denies headache(s) and Denies weight loss ENT Denies headache(s) Card Denies chest pain, Denies syncope, Denies irregular heart rhythm and Denies dyspnea Resp Denies chest congestion, Denies cough and Denies dyspnea GI Denies abdominal pain, Denies change in stool character, Denies nausea and Denies vomiting Musc Denies deformity and Denies joint swelling Neuro Denies syncope and Denies headache(s) Physical exam (Primary Care) Vital Signs: Last Vital Signs Pulse 64 12/30/23 10:27 BP 118/60 12/30/23 10:27 Pulse Ox 97 12/30/23 10:27 Oxygen Delivery Method Room Air 12/30/23 10:27 BMI result Body Mass Index 24.5 Tobacco/Smoking Status: Tobacco use Status Tobacco use date assessed 05/25/23 12/30/23 10:33 Patient Tobacco Use Status Former Tobacco user 12/30/23 10:33 Tobacco use type Cigarette 12/30/23 10:33 e-Cigarette/Vaping Use Never Used 12/30/23 10:33 Thrive Assessment: Date of Thrive Assessment Date Thrive assessed 05/25/23 12/30/23 10:33 Const General: cooperative, comfortable, no acute distress and alert Neck Neck: Yes no lymphadenopathy Thyroid: Thyroid normal Resp Effort & Inspection: normal respiratory effort Auscultation: clear to auscultation bilaterally Percussion: percussion normal Cardio Jugular venous distension: no JVD Palpation: normal PMI Rate: regular rate Rhythm: regular rhythm Heart sounds: S1 normal heart sound present and S2 normal heart sound present GI Inspection: Yes normal to inspection Palpation (GI): No hepatosplenomegaly present Skin General skin exam: no rashes or lesions noted Extrem General: Yes no clubbing, cyanosis or edema Coding Level of Care Code Est Pt Level 3 (21006) Diagnoses Hypertension, unspecified type I10 Hypertension type: unspecified Assessment & Plan Assessment & Plan (1) Hypertension: Code(s): I10 - Essential (primary) hypertension Category: Medical Qualifiers: Hypertension type: unspecified Qualified Code(s): I10 - Essential (primary) hypertension Plan: stable; same rx
== END 2023-12-30 10:44 | disposition home or self-care (01) ==
PROVIDERS: PCP Internal Medicine; Visit Provider Internal Medicine
DX: I10 Essential (primary) hypertension (principal)

== ENCOUNTER → 2023-12-30 10:22 | Outpatient (BNVA) | payer MEDICARE, SELFPAY | PROVIDERS: PCP Internal Medicine; Visit Provider Internal Medicine | DX: I10 Essential (primary) hypertension (principal) | CPT/HCPCS: 99212 ==

== ENCOUNTER 2024-05-01 09:57 | Outpatient (AMB) | payer MEDICARE, SELFPAY ==
[2024-05-01 10:03] VITALS: BP 130/82; PULSE 63; O2SAT 98; BMI 25.8
--- NOTE | 2024-05-01 10:03 | A.OFFPC_ITS ---
Vital Signs 05/01/24 10:03 Height 5 ft 8 in Weight 170 lb BMI 25.8 BP 130/82 Blood Pressure Location Lt brachial Position Sitting Pulse 63 Pulse Source Pulse Oximeter Pulse Oximetry (%) 98 Oxygen Delivery Method Room Air Intake Visit Reasons: 3 month f/u Allergies No Known Allergies [No Known Allergies*] Allergy (Verified 05/01/24 10:04) Medication List - Last Reconciled 05/01/24 by Jorge A Elliott MD hydrochlorothiazide 25 mg PO DAILY metoprolol tartrate 50 mg PO DAILY tamsulosin 0.4 mg PO DAILY Tobacco use date assessed: 05/01/24 Fall risk assessment: No Falls in past year Last assessed Fall Risk: 05/01/24 Dental Screening Dental Screen Date: 05/01/24 Did you have a dental visit in the last 12 months?: Yes Did you have a dental problem in the last 6 months where you did not have access to dental care?: No Was dental information given to patient?: Patient has dentist HPI 3 month f/u HPI Details hypertension on rx; stable; seeing urology for new dx prostate cancer [facility] Medical History Hypertension Screening for diabetes mellitus Surgical History History of colonoscopy History of surgery H/O rectal polypectomy History of tonsillectomy Family History Father Cancer Mother Heart disease Brother No problems noted. Brother No problems noted. Sister No problems noted. Sister No problems noted. Sister No problems noted. Son No problems noted. Daughter No problems noted. Daughter No problems noted. Family/Other Diabetes Social History Housing: House Alcohol intake: never Patient Tobacco Use Status: Former Tobacco user Tobacco use type: Cigarette Years Smoked: 20 years e-Cigarette/Vaping Use: Never Used Second Hand Smoke Exposure: No service: No Current occupational status: retired Current occupation: rt hand Cognitive needs: No Hearing needs: Yes Vision needs: Yes (glasses) Questionnaire PHQ-9 Over the last 2 weeks, how often have you been bothered by any of the following problems? 1. Little interest or pleasure in doing things: not at all 2. Feeling down, depressed, or hopeless: not at all 3. Trouble falling or staying asleep, or sleeping too much: not at all 4. Feeling tired or having little energy: not at all 5. Poor appetite or overeating: not at all 6. Feeling bad about yourself - or that you are a failure or have let yourself or your family down: not at all 7. Trouble concentrating on things, such as reading the newspaper or watching television: not at all 8. Moving or speaking so slowly that other people could have noticed. Or the opposite - being so fidgety or restless that you have been moving around a lot more than usual: not at all 9. Thoughts that you would be better off or of hurting yourself in some way: not at all Total score: 0 Depression Screening Interpretation: Negative Depression Screening Done: Yes 49552 - PHQ-9 Billing: Yes Source: Developed by Drs. Phan Frias, Maureen Ortiz, Yao Rausch and colleagues, with an educational josey from [employer]. Thrive Questionnaire Date Thrive assessed: 05/01/24 I am a: Patient What is your living situation today?: I have a steady place to live Within the past 12 months, did the food you bought not last and you didn't have the money to get more?: Never true Within the past 12 months, did you worry whether your food would run out before you got money to buy more?: Never true Do you have trouble paying for medicines?: No Do you have trouble getting transportation to medical appointments?: No Do you have trouble paying your heating and electricity bill?: No Do you have trouble taking care of your child, family member or friend?: No Do you have trouble with day-to-day activities such as bathing, preparing meals, shopping, managing finances, etc.?: No Are you currently unemployed and looking for a job?: No Are you interested in more education?: No Currently or been in a relationship where the following occur: No concerns reported THRIVE Score: 0 AUDIT C Alcohol Use Questionnaire (AUDIT-C) 3. How often do you have six or more drinks on one occasion?: Never Total Score: 0 FUNMI-7 AMB Questionnaire FUNMI-7 Date FUNMI - 7 assessed: 05/01/24 Feeling nervous, anxious, or on edge: 0 = Not at all Not being able to stop or control worryin = Not at all Worrying too much about different things: 0 = Not at all Trouble relaxin = Not at all Being so restless that it is hard to sit still: 0 = Not at all Becoming easily annoyed or irritable: 0 = Not at all Feeling afraid as if something awful might happen: 0 = Not at all Total FUNMI-7 score (0-4 normal; 5-9 mild; 10-14 moderate; 15-21 severe): 0 Source: Developed by Drs. Phan Frias, Maureen Ortiz, Yao Rausch and colleagues, with an educational josey from [employer]. Review of Systems Const Denies chills, Denies headache(s) and Denies weight loss ENT Denies headache(s) Card Denies chest pain, Denies syncope, Denies irregular heart rhythm and Denies dyspnea Resp Denies chest congestion, Denies cough and Denies dyspnea GI Denies abdominal pain, Denies change in stool character, Denies nausea and Denies vomiting Musc Denies deformity and Denies joint swelling Neuro Denies syncope and Denies headache(s) Physical exam (Primary Care) Vital Signs: Last Vital Signs Pulse 63 05/01/24 10:03 BP 130/82 05/01/24 10:03 Pulse Ox 98 05/01/24 10:03 Oxygen Delivery Method Room Air 05/01/24 10:03 BMI result Body Mass Index 25.8 Tobacco/Smoking Status: Tobacco use Status Tobacco use date assessed 05/01/24 05/01/24 10:08 Patient Tobacco Use Status Former Tobacco user 05/01/24 10:08 Tobacco use type Cigarette 05/01/24 10:08 e-Cigarette/Vaping Use Never Used 05/01/24 10:08 PHQ-9: PHQ-9 Score PHQ-9: Total score 0 05/01/24 10:08 Depression Screening Interpretation: Negative Thrive Assessment: Date of Thrive Assessment Date Thrive assessed 05/01/24 05/01/24 10:08 Currently or been in a relationship where the following occur: No concerns reported Const General: cooperative, comfortable, no acute distress and alert Neck Neck: Yes no lymphadenopathy Thyroid: Thyroid normal Resp Effort & Inspection: normal respiratory effort Auscultation: clear to auscultation bilaterally Percussion: percussion normal Cardio Jugular venous distension: no JVD Palpation: normal PMI Rate: regular rate Rhythm: regular rhythm Heart sounds: S1 normal heart sound present and S2 normal heart sound present GI Inspection: Yes normal to inspection Palpation (GI): No hepatosplenomegaly present Skin General skin exam: no rashes or lesions noted Extrem General: Yes no clubbing, cyanosis or edema Coding Level of Care Code Est Pt Level 3 (30288) Diagnoses Hypertension, unspecified type I10 Hypertension type: unspecified Additional Codes PHQ-9 - 07694 - PHQ-9 Billing: Yes ([id number]) Assessment & Plan Assessment & Plan (1) Hypertension: Code(s): I10 - Essential (primary) hypertension Category: Medical Qualifiers: Hypertension type: unspecified Qualified Code(s): I10 - Essential (primary) hypertension Plan: stable; same rx
--- OUTSIDE RECORDS SUMMARY | 2024-05-01 11:01 | XMS_ITS | Clinical Summary ---
Author Organization 299 [facility] Address [address] [place] [address] Phone Care Team Providers Care Parts Delivery Driver Name Role Phone Unavailable Primary Care Provider Unavailabl e Encounters Date Type Department Care Team Description 02/07/2024 Lab Requisition [facility] - Main Lab [address] [facility] [place] [address] Cintia Lopez, PA Benign prostatic hyperplasia with lower urinary tract symptoms from Last 3 Months Social History Tobacco Use Types Packs/Day Years Used Date Smoking Tobacco: Never Assessed Sex and Gender Information Value Date Recorded Sex Assigned at Not on file Legal Sex Male 10:15 PM EST Gender Identity Not on file Sexual Orientation Not on file Plan of Treatment Health Maintenance Due Date Last Done Comments DTaP,Tdap,and Td Vaccines (1 - Tdap) 06/10/1962 Pneumococcal Vaccine: 50+ Ye ars (1 of 1 - PCV) 06/10/1993 Zoster Vaccines (1 of 2) 06/10/1993 RSV Immunization Patients 60 + Years Old (1 - 1-dose 75+ series) 06/10/2018 Cholesterol Screening (Lipid Panel) 02/07/2022 Depression Screening 02/07/2022 Falls Risk Assessment 02/07/2022 Social Influencers of Health Screening 02/07/2022 COVID-19 Vaccine ( - 2023-2 5 season) 2023 Influenza Vaccine (#1) 2023 HIB Vaccines Aged Out No longer eligi ble based on patient's age to complete this topic HPV Vaccines Aged Out No longer eligi ble based on patient's age to complete this topic Hepatitis A Vaccines Aged Out No long er eligible based on patient's age to complete this topic Hepatitis B Vaccines Aged Out No long er eligible based on patient's age to complete this topic IPV Vaccines Aged Out No longer eligi ble based on patient's age to complete this topic MMR Vaccines Aged Out No longer eligi ble based on patient's age to complete this topic Meningococcal ACWY Vaccine Aged Out N o longer eligible based on patient's age to complete this topic Meningococcal B Vacine Aged Out No lo nger eligible based on patient's age to complete this topic RSV Immunization Patients Un saleem 20 months Aged Out No longer eligible b ased on patient's age to complete this topic Varicella Vaccines Aged Out No longer eligible based on patient's age to complete this topic Procedures Procedure Name Priority Date/Time Associated Diagnosis Comments PROSTATE SPECIFIC ANTIGEN DIAGNOSTIC Routine 02/07/2024 9:45 AM EST Benign prostatic hyperplasia with lower urinary tract symptoms from Last 3 Months Results * (ABNORMAL) Prostate specific antigen diagnostic (02/07/2024 9:45 AM EST) PSA 6.31(H) 0.00 - 4.00 ng/mL LAB CHEMISTRY METHOD 02/07/2024 3:26 PM EST [facility] Blood Venous blood specimen / Unknown 02/07/2024 9:45 AM EST 02/07/2024 2:15 PM EST Narrative [facility] - 02/07/2024 3:26 PM EST The Siemens Advia Centaur Chemiluminescent Immunoassay is used. Results obtained with different assay methods or kits cannot be used interchangeably. Results cannot be interpreted as absolute evidence of the presence or absence of malignant disease. us Cintia CLEMENS LAB BLOOD ORDERABLES Final Resul t [facility] [address] [place] [address], from Last 3 Months Insurance [employer]
--- OUTSIDE RECORDS SUMMARY | 2024-05-01 11:01 | XMS_ITS | Encounter Summary ---
Author Organization [facility] Address [address] [place] [address] Care Team Providers Care Jukebox Coin Collector Name Role Phone Physician, Pcp Unknown Primary Care Provider Dannielle vailable Encounter Details Date Type Department Care Team (Late st Contact Info) Description 02/07/2024 Lab Requisition [facility] - Main Lab [address] [facility] [place] [address] Cintia Lopez PA [address] [facility] [address] [place] [address] Benign prostatic hyperplasia with lower urinary tract symptoms Social History Tobacco Use Types Packs/Day Years Used Date Smoking Tobacco: Never Assessed Sex and Gender Information Value Date Recorded Sex Assigned at Not on file Legal Sex Male 10:15 PM EST Gender Identity Not on file Sexual Orientation Not on file documented as of this encounter Plan of Treatment Not on file documented as of this encounter Procedures Procedure Name Priority Date/Time Associated Diagnosis Comments PROSTATE SPECIFIC ANTIGEN DIAGNOSTIC Routine 02/07/2024 9:45 AM EST Benign prostatic hyperplasia with lower urinary tract symptoms documented in this encounter Results * (ABNORMAL) Prostate specific antigen diagnostic (02/07/2024 9:45 AM EST) PSA 6.31(H) 0.00 - 4.00 ng/mL LAB CHEMISTRY METHOD 02/07/2024 3:26 PM EST [facility] Blood Venous blood specimen / Unknown 02/07/2024 9:45 AM EST 02/07/2024 2:15 PM EST Narrative [facility] - 02/07/2024 3:26 PM EST The Siemens Advia Sitari Pharm[employer]aur Chemiluminescent Immunoassay is used. Results obtained with different assay methods or kits cannot be used interchangeably. Results cannot be interpreted as absolute evidence of the presence or absence of malignant disease. us Cintia CLEMENS LAB BLOOD ORDERABLES Final Resul t [facility] [address] [place] [address], documented in this encounter Visit Diagnoses Diagnosis Benign prostatic hyperplasia with lower urinary tract symptoms documented in this encounter Care Teams Jukebox Coin Collector Relationship Specialty Start Date End Date Physician, Pcp Unknown PCP - General 02/07/24 02/07/24 documented as of this encounter
--- OUTSIDE RECORDS SUMMARY | 2024-05-01 11:01 | XMS_ITS | Continuity of Care Document ---
Author Name [facility] Organization [facility] Care Team Providers Care Client Hr Manager Name Role Phone [facility] Unavailable Unavailable Problems Combined list of problems from Department of Defense and Veterans Affairs facilities. It does not include entries that were removed or entered in error. Problem Status Onset Date Problem Type Date of Resolution Comments Source Enlarged prostate Active [facility] Hearing Loss (SCT [id number]) Active Condition [facility] History of calculus of kidney Active Condition [facility] Hypertension Active Condition [facility] Synovial cyst of knee Active Condition Jan 14, 2024 Entered By: KANNAN BASSETT Comment: Bakers cyst- posterior aspect L knee [facility] Diagnosis: ICD-10-CM Z46.1 Encounter for fitting and adjustment of hearing aid Active Diagnosis [facility] Diagnosis: ICD-10-CM H90.3 Sensorineural hearing loss, bilateral Active Diagnosis [facility] Diagnosis: ICD-10-CM I10 Essential (primary) hypertension Active Diagnosis [facility] Diagnosis: ICD-10-CM Z71.9 Counseling, unspecified Active Diagnosis [facility] Medications Combined list of outpatient medications from Department of Defense and Veterans Affairs facilities.Medications provided include 1) outpatient medications from the last 15 months, and 2) patient-reported medications. Medication Details Route Status Patient Instructions Prescription Expires Prescription Number Last Dispense Date Ordering Provider Order Date Order Qty Source HYDROCHLORO THIAZIDE 25MG TAB TAKE ONE TABLET BY MOUTH ONCE DAILY ORAL ACTIVE CHRISTINE DINERO 2023 [facility] METOPROLOL SUCCINATE 50MG TAB,SA TAKE ONE TABLET BY MOUTH ONCE DAILY ORAL ACTIVE CHRISTINE DINERO 2023 [place] [facility] [place] [facility] TAMSULOSIN HCL 0.4MG CAP TAKE 1 CAPSULE BY MOUTH ONCE DAILY ORAL ACTIVE CHRISTINE DINERO 2023 [place] [facility] [place] [facility] Immunizations Combined list of available immunizations from the Department of Defense and Veterans Affairs facilities. Immunization Series Date Given Administered By Site Reaction Lot Number CVX Code Drug Development Technologist Status Comments Source INFLUENZA, UNSPECIFIED FORMULATION 2023 88 complet [facility] [place] [facility] RSV, BIVALENT, PROTEIN SUBUNIT RSVPREF, DILUENT RECONSTITUTED , 0.5 ML, PF 2023 305 complet [facility] [place] [facility] Vital Signs Combined list of inpatient and outpatient Vital Signs from Department of Defense and Veterans Affairs, ranging from 12 months to all on record, depending upon the facility. Vital Sign Value Date Comments Source SYSTOLIC BLOOD PRESSURE 148 01/20/20 14:46:31 [facility] [place] [facility] DIASTOLIC BLOOD PRESSURE 82 024 14:46:31 [facility] [place] [facility] PULSE OXIMETRY 98 01/20/2024 14:46:31 [facility] WEIGHT 165.7 01/20/2024 14:46:31 [facility] BMI 26 kg/m2 01/20/2024 14:46:31 [facility] PAIN 0 01/20/2024 14:46:31 [facility] [place] [facility] HEIGHT 67 01/20/2024 14:46:31 [facility] [place] [facility] TEMPERATURE 97.7 01/20/2024 14:46:31 [facility] PULSE 60 01/20/2024 14:46:31 [facility] RESPIRATION 16 01/20/2024 14:46:31 [facility] SYSTOLIC BLOOD PRESSURE 149 01/14/20 24 12:58:43 [facility] DIASTOLIC BLOOD PRESSURE 79 024 12:58:43 [facility] PULSE OXIMETRY 98 01/14/2024 12:58:43 [facility] WEIGHT 166 01/14/2024 12:58:43 [facility] BMI 26 kg/m2 01/14/2024 12:58:43 [facility] PAIN 0 01/14/2024 12:58:43 [facility] HEIGHT 67 01/14/2024 12:58:43 [facility] TEMPERATURE 97.8 01/14/2024 12:58:43 [facility] PULSE 60 01/14/2024 12:58:43 [facility] RESPIRATION 20 01/14/2024 12:58:43 [facility] Encounters Combined list of: 1) Encounters from Department of Veterans Affairs facilities going backup to the last 18 months, not all VA inpatient encounters are included; 2) Encounters from the Department of Defense facilities going backup to 280 months. 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, unspeci fikatalina BLANKENSHIP,FIOR GARAY E 01/13 [facility] OFFICE O/P EST LOW 20 MIN [id number] Diagnos is: ICD-10- CM I10 Essenti al (primar y) hyperte CHRISTINE Paulson 01/19 [place] [facility] [place] [facility] [place] [facility] Outpatient Encounter [id number] 01/23 [place] [facility] [place] [facility] [place] [facility] HEARING AID EXAM BOTH EARS [id number] Diagnos is: ICD-10- CM H90.3 Sensori neural hearing loss, bilater al Dayne SAM 02/01 [place] [facility] [place] [facility] [place] [facility] HEARING SERVICE [id number] Diagnos is: ICD-10- CM Z46.1 Encount er for fitting and adjustm ent of hearing aid Dayne SAM 02/20 [place] [facility] [place] [facility] Social History Combined list of available smoking, tobacco, and other social history from Department of Defense and Veterans Affairs facilities. Social History Type Response Date Comment Sourc e Tobacco smoking status NHIS VA-TOBACCO FORMER USER [facility]14[facility]2024 [facility] History of tobacco use [place]-TOBACCO QUIT 15 YRS OR MORE 01/14/2024 [facility] [place] [facility] Plan of Care List of future care activities from Department of Veterans Affairs facilities. Additional future care activities may be listed in the Assessment and Plan section. Date/Time Care Activity Care Activity Detail Facili ty 05/19/2024 AMBULATORY - [facility] [place] [facility]
--- OUTSIDE RECORDS SUMMARY | 2024-05-01 11:01 | XMS_ITS ---
Author Name [facility] Organization [facility] Address [address] [place] [address] Care Team Providers Care Compression Molding Machine Operator Name Role Phone CHRISTINE DINERO Primary Care Provider Unavail able Insurance Providers: All historical and current Section Date Range: From patient's date of to the date document was created. This section includes the names of all active insurance providers for the patient. Insurance Provider Type of Coverage Plan Name Start of Policy Coverage End of Policy Coverage Group Number Member ID Insurance Provider's Telephone Number Policy Phipps's Name Patient's Relationship to Policy Phipps AETNA [facility] (WNR) MEDICARE ADVANTAGE [facility] (WNR) Mar 08, 2023 [id number] [phone] Nasir RAINES PATIENT Selected Encounter This section includes the information on record at [place] for the Encounter. Date/Time Encounter Type Encounter Description Reason Pro vider Source Jan 24, 2024 08:47 AM Outpatient Encounter ADMIN PAT ACTIVTIES (MASNONCT) IHE Encounter Template Text not used by [place] Plan of Treatment: Future Appointments (+ 6 months) and Future Tests (+/- 45 days) The Plan of Treatment section includes future care activities for the patient from all [place] treatmentfacilities. This section includes future appointments and future orders which are active, pending or scheduled. Future Appointments This section includes appointments that were scheduled to occur 6 months from the date of the Encounter, up to a maximum of 20 appointments. The data comes from all [place] treatment facilities. Appointment Date/Time Appointment Type Appointme nt Facility Name Feb 02, 2024 10:00 AM [facility] Feb 21, 2024 02:00 PM [facility] May 19, 2024 01:30 PM [facility] Social History: Smoking Status (Most current) and Tobacco Use (All prior to encounter date) This section includes the most current, and the historical, smoking and tobacco- related health factors from the [place] facility where the Encounter took place. Current Smoking Status This section includes the most current smoking, or tobacco-related health factor, from the [place] facility where the Encounter took place. Date/Time Current Smoking Status Comment Facil ity Jan 14, 2024 01:00 PM VA-TOBACCO FORMER USER [facility] Tobacco Use History This section includes a history of the smoking, or tobacco-related health factors, that were collected on or before the date of the Encounter. The data comes from the [place] facility where the Encounter took place. Date/Time Smoking Status/Tobacco Use Comment F acility Jan 14, 2024 01:00 PM VA-TOBACCO QUIT 15 YRS OR MORE [facility] Encounter Notes: All associated encounter notes This section contains the clinical notes associated to the Encounter. Date/Time Encounter Note(s) Provider Source Jan 14, 2024 12:01 AM CLINICAL WARNING: LOCAL TITLE: COMMUNICATION AUTHORIZATION STANDARD TITLE: CLINICAL WARNING DATE OF NOTE: JAN 14, 2024@00:01 ENTRY DATE: JAN 24, 2024@08:47:45 AUTHOR: AVI GORDON EXP COSIGNER: URGENCY: STATUS: COMPLETED Family/Caregiver Name: Primary: PAULINE RAINES- Secondary: AVI GURROLA- DAUGHTER Tertiary: Authorized Clinic & Topics: All Clinic's & Topics: All Care/Coordination Primary Care: All Care/Coordination Mental Health: All Care/Coordination Specialty Care: All Care/Coordination [id number] Protected Info: [ ] Drug Abuse [ ] Alcohol Abuse [ ] HIV [ ] Sickle Cell Expiration: Date: [ ] At [X] Through [ ] At end of care /fatuma/ AVI GORDON Signed: 01/24/2024 08:49 AVI GORDON [facility]
== END 2024-05-01 10:26 | disposition home or self-care (01) ==
PROVIDERS: PCP Internal Medicine; Visit Provider Internal Medicine
DX: I10 Essential (primary) hypertension (principal)

== ENCOUNTER → 2024-05-01 09:57 | Outpatient (BNVA) | payer MEDICARE, SELFPAY | PROVIDERS: PCP Internal Medicine; Visit Provider Internal Medicine | DX: I10 Essential (primary) hypertension (principal) | CPT/HCPCS: 96127; 99212 ==

== ENCOUNTER 2024-05-04 09:06 | Outpatient (REF) | payer MEDICARE, SELFPAY ==
[2024-05-04 09:20] LABS: MANUAL DIFF FLAG NO
--- OUTSIDE RECORDS SUMMARY | 2024-05-04 09:54 | XMS_ITS | Encounter Summary ---
Author Organization [facility] Address [address] [place] [address] Care Team Providers Care Cake Decorator Name Role Phone Physician, Pcp Unknown Primary Care Provider Dannielle vailable Encounter Details Date Type Department Care Team (Late st Contact Info) Description 02/07/2024 Lab Requisition [facility] - Main Lab [address] [facility] [place] [address] Cintia Lopez PA [address] [facility] [address] [place] [address] Benign prostatic hyperplasia with lower urinary tract [...] LAB CHEMISTRY METHOD 02/07/2024 3:26 PM EST [facility] Blood Venous blood specimen / Unknown 02/07/2024 9:45 AM EST 02/07/2024 2:15 PM EST Narrative [facility] - 02/07/2024 3:26 PM EST The Siemens Advia Well[employer]aur Chemiluminescent Immunoassay is used. Results obtained with different assay methods or kits cannot be used interchangeably. Results cannot be interpreted as absolute evidence of the presence or absence of malignant disease. us Cintia CLEMENS LAB BLOOD ORDERABLES Final Resul t [facility] [address] [place] [address], documented in this encounter Visit Diagnoses Diagnosis Benign prostatic hyperplasia with lower urinary tract symptoms documented in this encounter Care Teams Cake Decorator Relationship Specialty Start Date End Date Physician, Pcp Unknown PCP - General 02/07/24 02/07/24 documented as of this encounter
--- OUTSIDE RECORDS SUMMARY | 2024-05-04 09:54 | XMS_ITS | Clinical Summary ---
Author Organization 299 [facility] Address [address] [place] [address] Phone Care Team Providers Care Bodywork Therapist Name Role Phone Unavailable Primary Care Provider Unavailabl e Encounters Date Type Department Care Team Description 02/07/2024 Lab Requisition [facility] - Main Lab [address] [facility] [place] [address] Cintia Lopez, PA Benign prostatic [...] LAB CHEMISTRY METHOD 02/07/2024 3:[address] [facility] Blood Venous blood specimen / Unknown 02/07/2024 9:45 AM EST 02/07/2024 2:[address] [facility] - 02/07/2024 3:26 PM EST The Siemens Advia Centaur Chemiluminescent Immunoassay is used. Results obtained with different assay methods or kits cannot be used interchangeably. Results cannot be interpreted as absolute evidence of the presence or absence of malignant disease. us Cintia CLEMENS LAB BLOOD ORDERABLES Final Resul t [facility] [address] [place] [address], from Last 3 Months Insurance A[employer]
--- OUTSIDE RECORDS SUMMARY | 2024-05-04 09:54 | XMS_ITS | Continuity of Care Document ---
Author Name [facility] Organization [facility] Care Team Providers Care Front Office Developer Name Role Phone [facility] Unavailable Unavailable Problems Combined list of problems from Department of Defense and Veterans Affairs facilities. It does not include entries that were removed or entered in error. Problem Status Onset Date Problem Type Date of Resolution Comments Source Enlarged prostate Active Condition [facility] Hearing Loss (SCT [id number]) Active Condition [facility] [...] ONCE DAILY ORAL ACTIVE CHRISTINE DINERO 2023 [place] [facility] METOPROLOL SUCCINATE 50MG TAB,SA TAKE ONE TABLET BY MOUTH ONCE DAILY ORAL ACTIVE CHRISTINE DINERO 2023 [place] [facility] [place] [place] [facility] TAMSULOSIN HCL 0.4MG CAP TAKE 1 CAPSULE BY MOUTH ONCE DAILY ORAL ACTIVE CHRISTINE DINERO 2023 [place] [facility] [place] [facility] Immunizations Combined list of available immunizations from the Department of Defense and Veterans Affairs facilities. Immunization Series Date Given Administered By Site Reaction Lot Number CVX Code Drug Rhit Status Comments Source INFLUENZA, UNSPECIFIED FORMULATION 2023 88 complet [facility] [place] [facility] RSV, BIVALENT, PROTEIN SUBUNIT RSVPREF, DILUENT RECONSTITUTED , 0.5 ML, PF 2023 305 complet [facility] [place] [place] [facility] Vital Signs Combined list of inpatient and outpatient Vital Signs from Department of Defense and Veterans Affairs, ranging from 12 months to all on record, depending upon the facility. Vital Sign Value Date Comments Source SYSTOLIC BLOOD PRESSURE 148 01/20/20 14:46:31 [facility] [place] [facility] DIASTOLIC BLOOD PRESSURE 82 024 14:46:31 [facility] [place] [facility] PULSE OXIMETRY 98 01/20/2024 14:46:31 [facility] WEIGHT 165.7 01/20/2024 14:46:31 [facility] BMI 26 kg/m2 01/20/2024 14:46:31 [facility] PAIN 0 01/20/2024 14:46:31 [facility] [place] [facility] HEIGHT 67 01/20/2024 14:46:31 [facility] [place] [facility] TEMPERATURE 97.7 01/20/2024 14:46:31 [facility] Out[facility] En[facility] [id number] 11/17 [facility] En[facility] [id number] 12/06 [facility] OFF/OP EST MAY X REQ PHY/QHP [id number] Diagnos is: ICD-10- CM 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, unspeci fikatalina BLANKENSHIP,FIOR GARAY E 01/13 [facility] OFFICE O/P EST LOW 20 MIN [id number] Diagnos is: ICD-10- CM I10 Essenti al (primar y) hyperte CHRISTINE Paulson 01/19 [place] [facility] [place] [facility] [place] [facility] Outpatient Encounter [id number] 01/23 [place] [facility] [place] [place] [facility] [place] [facility] HEARING AID EXAM BOTH EARS [id number] Diagnos is: ICD-10- CM H90.3 Sensori neural hearing loss, bilater al Dayne SAM 02/01 [place] [facility] [place] [facility] [place] [facility] [id number] Diagnos is: ICD-10- CM Z46.1 Encount er for fitting and adjustm ent of hearing aid Dayne SAM 02/20 [place] [facility] Social History Combined list of available smoking, tobacco, and other social history from Department of Defense and Veterans Affairs facilities. Social History Type Response Date Comment Sourc e Tobacco smoking status NHIS [facility]-TOBACCO FORMER USER [facility]2024 [facility] History of tobacco use [place]-TOBACCO QUIT 15 YRS OR MORE 01/14/2024 [facility] [place] [facility] Plan of Care List of future care activities from Department of Veterans Affairs facilities. Additional future care activities may be listed in the Assessment and Plan section. Date/Time Care Activity Care Activity Detail Facili ty 05/19/2024 AMBULATORY - MEDIC[facility] [place] [facility]
[2024-05-04 10:00] LABS: Basophils Absolute Auto 0.1 X10*3/uL (0.0-0.2); Basophils Percent Auto 1.1 % (0-2); Eosinophils Absolute Auto 0.1 X10*3/uL (0.0-0.4); Hematocrit 42.8 % (42.0-52.0); Hemoglobin 14.7 g/dl (14.0-18.0); Imm Gran Abs Auto 0.01 X10*3/uL (0.00-0.03); Imm Gran Pct Auto 0.2 % (0.0-0.4); Lymphocytes Absolute Auto 1.6 X10*3/uL (1.2-4.9); Lymphocytes Percent Auto 35.6 % (20-40); Mean Corpuscular HGB Conc 34.3 g/dl (31.0-36.0); Mean Corpuscular Volume 84.4 fL (80.0-98.0); Mean Platelet Volume 9.1 fL (9.4-12.4); Monocytes Absolute Auto 0.4 X10*3/uL (0.1-1.2); Monocytes Percent Auto 8.8 % (2-11); Neutrophils Absolute Auto 2.3 x10*3/uL (2.0-8.3); Neutrophils Percent Auto 52.3 % (45-73); Platelet Count 269 X10*3/uL (160-400); Red Blood Count 5.07 X10*6/uL (4.60-5.80); White Blood Count 4.4 X10*3/uL (4.8-10.8)
[2024-05-04 10:49] LABS: Prostate Specific Antigen Scr 4.57 ng/mL (<0.05-4.0)
[2024-05-04 10:55] LABS: Alanine Aminotransferase 16 U/L (0-40); Albumin Level 4.4 g/dL (3.5-5.0); Alkaline Phosphatase 68 U/L (39-117); Anion Gap 12 (12-20); Aspartate Amino Transferase 29 U/L (5-37); Blood Urea Nitrogen 9 mg/dL (9-16); Calcium 9.5 mg/dL (8.4-10.2); Carbon Dioxide 30 mmol/L (22-29); Chloride 103 mmol/L (96-108); Cholesterol 206 mg/dL (<200); Estimated Glomerular Filt Rate > 60; Glucose Fasting 105 mg/dL (60-99); Potassium 3.8 mmol/L (3.3-5.1); Sodium 141 mmol/L (135-145); Total Protein 7.9 g/dL (6.5-8.0); Triglycerides 98 mg/dL (<150)
[2024-05-04 11:14] LABS: HDL Cholesterol 55 mg/dL (>40); LDL Cholesterol Calculated 132 mg/dL (<100)
== END 2024-05-04 09:07 | disposition home or self-care (01) ==
LOC: HO.LAB 09:06
PROVIDERS: PCP Internal Medicine; Visit Provider Internal Medicine
DX: Z00.00 Encounter for general adult medical examination without abnormal findings (principal); E03.9 Hypothyroidism, unspecified; Z13.220 Encounter for screening for lipoid disorders; D64.9 Anemia, unspecified; N28.9 Disorder of kidney and ureter, unspecified; Z12.5 Encounter for screening for malignant neoplasm of prostate
CPT/HCPCS: 36415; 80053; 80061; 84153; 84443; 85025

== ENCOUNTER 2024-07-26 08:46 | Outpatient (AMB) | payer MEDICARE, SELFPAY ==
[2024-07-26 08:51] VITALS: BP 130/82; PULSE 60; RESP 20; TEMP 36.6; O2SAT 98; BMI 24.8
--- NOTE | 2024-07-26 08:51 | A.OFFPC_ITS ---
Vital Signs 07/26/24 08:51 Height 5 ft 8 in Weight 163 lb 6.4 oz BMI 24.8 BP 130/82 Blood Pressure Location Lt brachial Position Sitting Respiration 20 Pulse 60 Pulse Source Pulse Oximeter Temp 97.8 F Temp Source Oral Pulse Oximetry (%) 98 Oxygen Delivery Method Room Air Intake Visit Reasons: CHRISS DR Elliott Foot Gatherer Required: No Accompanied by: Self / Same As Patient Allergies No Known Allergies [No Known Allergies*] Allergy (Verified 07/26/24 09:24) Medication List - Last Reconciled 07/26/24 by JAIME Beltrán hydrochlorothiazide 25 mg PO DAILY metoprolol tartrate 50 mg PO DAILY tamsulosin 0.4 mg PO DAILY Tobacco use date assessed: 07/26/24 Fall risk assessment: No Falls in past year Last assessed Fall Risk: 07/26/24 Dental Screening Dental Screen Date: 07/26/24 Did you have a dental visit in the last 12 months?: Yes Did you have a dental problem in the last 6 months where you did not have access to dental care?: No Was dental information given to patient?: Patient has dentist HPI CHRISS DR Elliott HPI Details The patient is an 79-year-old male presenting for CHRISS from Dr. Elliott who recently retired. last seen in office05/01/2024. Here for management and evaluation of chronic health conditions. He has a history of essential hypertension controlled by medication, hypercholesterolemia managed through diet which remains inadequately controlled, and benign prostatic hyperplasia for which he is under urologic care with symptoms managed by tamsulosin. Additionally, he experiences bilateral hearing loss (chronic presbycusis) manage by vale hearing aids, and left knee pain when going up or down stairs attributed to osteoarthritis, in part due to a Mcgarry's cyst, neither of which currently require surgical intervention, per othropedic's. [facility] Medical History Hypertension Screening for diabetes mellitus Surgical History History of colonoscopy History of surgery H/O rectal polypectomy History of tonsillectomy Family History Father Cancer Mother Heart disease Brother No problems noted. Brother No problems noted. Sister No problems noted. Sister No problems noted. Sister No problems noted. Son No problems noted. Daughter No problems noted. Daughter No problems noted. Family/Other Diabetes Social History Housing: House Alcohol intake: never Patient Tobacco Use Status: Former Tobacco user Tobacco use type: Cigarette Years Smoked: 20 years e-Cigarette/Vaping Use: Never Used Second Hand Smoke Exposure: No service: No Current occupational status: retired Current occupation: rt hand Cognitive needs: No Hearing needs: Yes Vision needs: Yes (glasses) Questionnaire PHQ-9 Over the last 2 weeks, how often have you been bothered by any of the following problems? 1. Little interest or pleasure in doing things: not at all 2. Feeling down, depressed, or hopeless: not at all 3. Trouble falling or staying asleep, or sleeping too much: not at all 4. Feeling tired or having little energy: not at all 5. Poor appetite or overeating: not at all 6. Feeling bad about yourself - or that you are a failure or have let yourself or your family down: not at all 7. Trouble concentrating on things, such as reading the newspaper or watching television: not at all 8. Moving or speaking so slowly that other people could have noticed. Or the opposite - being so fidgety or restless that you have been moving around a lot more than usual: not at all 9. Thoughts that you would be better off or of hurting yourself in some way: not at all Total score: 0 Depression Screening Interpretation: Negative Depression Screening Done: Yes Source: Developed by Drs. Phan Frias, Maureen Ortiz, Yao Rausch and colleagues, with an educational josey from [employer]. Thrive Questionnaire Date Thrive assessed: 07/26/24 I am a: Patient What is your living situation today?: I have a steady place to live Within the past 12 months, did the food you bought not last and you didn't have the money to get more?: Never true Within the past 12 months, did you worry whether your food would run out before you got money to buy more?: Never true Do you have trouble paying for medicines?: No Do you have trouble getting transportation to medical appointments?: No Do you have trouble paying your heating and electricity bill?: No Do you have trouble taking care of your child, family member or friend?: No Do you have trouble with day-to-day activities such as bathing, preparing meals, shopping, managing finances, etc.?: No Are you currently unemployed and looking for a job?: No Are you interested in more education?: No Please select the resources that you would like help with: None Currently or been in a relationship where the following occur: No concerns reported THRIVE Score: 0 AUDIT C Alcohol Use Questionnaire (AUDIT-C) 1. How often do you have a drink containing alcohol?: Never Total Score: 0 Score Reviewed/Action Taken: No FUNMI-7 AMB Questionnaire FUNMI-7 Date FUNMI - 7 assessed: 07/26/24 Feeling nervous, anxious, or on edge: 0 = Not at all Not being able to stop or control worryin = Not at all Worrying too much about different things: 0 = Not at all Trouble relaxin = Not at all Being so restless that it is hard to sit still: 0 = Not at all Becoming easily annoyed or irritable: 0 = Not at all Feeling afraid as if something awful might happen: 0 = Not at all Total FUNMI-7 score (0-4 normal; 5-9 mild; 10-14 moderate; 15-21 severe): 0 Source: Developed by Drs. Phan Frias, Maureen Ortiz, Yao Rausch and colleagues, with an educational josey from [employer]. Review of Systems Const Denies headache(s) Eyes Denies loss of vision ENT Denies vertigo, Denies dizziness, Denies headache(s), Reports hearing loss and Denies sore throat Card Denies chest pain, Denies leg edema and Denies lightheadedness Resp Denies cough, Denies hemoptysis and Denies wheezing GI Denies abdominal pain, Denies melena, Denies constipation, Denies diarrhea and Denies vomiting Reports oliguria (Incomplete emptying), Denies dysuria, Denies urinary frequency and Denies urinary urgency Musc Reports arthralgias (Left knee (Mcgarry cyst)), Denies joint swelling, Denies numbness and Denies tingling Neuro Denies Abnormal speech present, Denies vertigo, Denies dizziness, Denies headache(s), Denies loss of vision, Denies numbness and Denies tingling Jonathan/Lymph Denies easy bleeding and Denies easy bruising Aller/Immun Denies wheezing Physical exam (Primary Care) Vital Signs: Last Vital Signs Temp 97.8 F 07/26/24 08:51 Pulse 60 07/26/24 08:51 Resp 20 07/26/24 08:51 BP 130/82 07/26/24 08:51 Pulse Ox 98 07/26/24 08:51 Oxygen Delivery Method Room Air 07/26/24 08:51 BMI result Body Mass Index 24.8 Tobacco/Smoking Status: Tobacco use Status Tobacco use date assessed 07/26/24 07/26/24 09:00 Patient Tobacco Use Status Former Tobacco user 07/26/24 09:00 Tobacco use type Cigarette 07/26/24 09:00 e-Cigarette/Vaping Use Never Used 07/26/24 09:00 PHQ-9: PHQ-9 Score PHQ-9: Total score 0 07/26/24 09:52 Depression Screening Interpretation: Negative Thrive Assessment: Date of Thrive Assessment Date Thrive assessed 07/26/24 07/26/24 09:00 Currently or been in a relationship where the following occur: No concerns reported Const General: healthy appearing, no acute distress, alert and awake Nutritional Appearance: well nourished Orientation/consciousness: oriented to person, oriented to place and oriented to time HENMT Ears: TM's normal bilaterally General nose exam: Normal nasal mucous membranes and turbinates present Eyes Conjunctivae: conjunctivae normal Sclerae: sclerae normal Pupils: Equal, round and reactive pupils present Neck Neck: Yes no lymphadenopathy and Yes no JVD Thyroid: Thyroid normal Carotids: no bruits Resp Effort & Inspection: normal respiratory effort and not tachypneic Auscultation: no crackles, no rales, no rhonchi and no wheezes Cardio Rate: regular rate Rhythm: regular rhythm Heart sounds: no murmurs and normal S1 and S2 GI Palpation (GI): Soft to palpation, nontender, no hepatomegaly and no splenomegaly Auscultation: normal bowel sounds General: Yes no CVA tenderness Back/Spine/Pelvis Back: no CVA tenderness Skin General skin exam: no rashes or lesions noted and dry skin Neuro General: oriented to person, oriented to place and oriented to time Cranial nerves: Yes Equal, round and reactive pupils present Speech: No Abnormal speech present Gait exam (Neuro): Normal gait present Motor exam (neuro): no tremor noted Extrem Right upper extremity: full ROM Left upper extremity: full ROM Right lower extremity: full ROM; no edema Left lower extremity: full ROM and knee Details: tenderness (Posterior(Mcgarry's cyst)); no edema Psych Mental Status: mental status grossly normal Speech and movement: Normal speech and movement present Affect: normal affect Attitude: cooperative Thought process: Normal thought process present Results Reviewed Results Reviewed: Laboratory Tests 05/04/24 09:19 WBC 4.4 L RBC 5.07 Hgb 14.7 Hct 42.8 MCV 84.4 MCH 29.0 MCHC 34.3 RDW 14.0 Plt Count 269 Sodium 141 Potassium 3.8 Chloride 103 Carbon Dioxide 30 H Anion Gap 12 BUN 9 Creatinine 0.99 Estimated GFR > 60 Fasting Glucose 105 H Calcium 9.5 Total Bilirubin 1.0 AST 29 ALT 16 Alkaline Phosphatase 68 Total Protein 7.9 Albumin 4.4 Triglycerides 98 Cholesterol 206 H LDL Cholesterol, Calc 132 H HDL Cholesterol 55 PSA Screen 4.57 H TSH 3.60 Coding Level of Care Code Est Pt Level 4 (94150) Diagnoses Pure hypercholesterolemia with target low density lipoprotein (LDL) cholesterol less than 130 mg/dL E78.00 Arthritis of left knee M17.12 Benign prostatic hyperplasia, unspecified whether lower urinary tract symptoms present N40.0 Lower urinary tract symptom presence: unspecified whether lower urinary tract symptoms present Impaired fasting glucose R73.01 Hypertension, unspecified type I10 Hypertension type: unspecified Bilateral hearing loss, unspecified hearing loss type H91.93 Hearing loss type: unspecified Laterality: bilateral Time Spent (min) 39 Assessment & Plan Assessment & Plan (1) Pure hypercholesterolemia with target low density lipoprotein (LDL) cholesterol less than 130 mg/dL: Code(s): E78.00 - Pure hypercholesterolemia, unspecified Category: Medical Plan: Last labs on 05/04/2024 showed: Tri 98, tch 206, ldl 132 Reinforced low-cholesterol diet and activity as tolerated (2) Arthritis of left knee: Code(s): M17.12 - Unilateral primary osteoarthritis, left knee Category: Medical Plan: Evaluated by Orthopedics on 10/29/2023. At that time, the patient pain was minimal with optimal function and it was determined that the patient was not a candidate for either injections or a surgical interventions. Encouraged the patient to follow up with Orthopedic since his pain as worsen some. He continues to be high function, continue OTC pain medications. (3) Benign prostate hyperplasia: Code(s): N40.0 - Benign prostatic hyperplasia without lower urinary tract symptoms Category: Medical Qualifiers: Lower urinary tract symptom presence: unspecified whether lower urinary tract symptoms present Qualified Code(s): N40.0 - Benign prostatic hyperplasia without lower urinary tract symptoms Plan: Reports incomplete emptying of bladder Continue tamsulosin 0.4 mg daily Follow up with Urology (4) Impaired fasting glucose: Code(s): R73.01 - Impaired fasting glucose Category: Medical Plan: Fasting glucose 105 last labs, and 106 prior, which are mild elevation. We will let an A1c to next blood work to further evaluate (5) Hypertension: Code(s): I10 - Essential (primary) hypertension Category: Medical Qualifiers: Hypertension type: unspecified Qualified Code(s): I10 - Essential (primary) hypertension Plan: BP in office 130/82 Reinforced low-salt diet Continue hydrochlorothiazide 25 mg daily, and metoprolol tartrate 50 mg daily (6) Hearing loss: Code(s): H91.90 - Unspecified hearing loss, unspecified ear Category: Medical Qualifiers: Hearing loss type: unspecified Laterality: bilateral Qualified Code(s): H91.93 - Unspecified hearing loss, bilateral Plan: Continue bilateral hearing aids Plan Patient to follow up in 4 months
--- OUTSIDE RECORDS SUMMARY | 2024-07-26 10:03 | XMS_ITS ---
Author Name [facility] Address [address] [place] [id number] Care Team Providers Care Field Assembly Supervisor Name Role Phone CHRISTINE DINERO Primary Care [...] Name Patient's Relationship to Policy Phipps [employer] [facility] (WNR) MEDICARE ADVANTAGE [facility] (WNR) Mar 08, 2023 [id number] [phone] Nasir RAINES PATIENT Selected Encounter This section includes the information on record at [place] for the Encounter. Date/Time Encounter Type Encounter Description Reason Pro vider Source Jan 24, 2024 08:47 AM Outpatient Encounter ADMIN PAT ACTIVTIES (MASNONCT) IHE Encounter Template Text not used by [place] Plan of Treatment: Future Appointments (+ 6 months) and Future Tests (+/- 45 days) The Plan of Treatment section includes future care activities for the patient from all [place] treatmentfacilities. This section includes future appointments and future orders which are active, pending or scheduled. Future Appointments This section includes appointments that were scheduled to occur 6 months from the date of the Encounter, up to a maximum of 20 appointments. The data comes from all [place] treatment facilities. Appointment Date/Time Appointment Type Appointme nt Facility Name Feb 02, 2024 10:00 AM [facility] Feb 21, 2024 02:00 PM [facility] May 19, 2024 01:30 PM [facility] Social History: Smoking Status (Most current) and Tobacco Use (All prior to encounter date) This section includes the most current, and the historical, smoking and tobacco- related health factors from the [place] facility where the Encounter took place. Current Smoking Status This section includes the most current smoking, or tobacco-related health factor, from the [place] facility where the Encounter took place. Date/Time Current Smoking Status Comment Facil ity Jan 14, 2024 01:00 PM VA-TOBACCO FORMER USER [facility] Tobacco Use History This section includes a history of the smoking, or tobacco-related health factors, that were collected on or before the date of the Encounter. The data comes from the [place] facility where the Encounter took place. Date/Time Smoking Status/Tobacco Use Comment F acility Jan 14, 2024 01:00 PM VA-TOBACCO QUIT 15 YRS OR MORE [facility] Encounter Notes: All associated encounter notes This [...] AVI GORDON Signed: 01/24/2024 08:49 AVI GORDON [facility]
--- OUTSIDE RECORDS SUMMARY | 2024-07-26 10:04 | XMS_ITS | Continuity of Care Document ---
Author Name [facility] Organization [facility] Care Team Providers Care Guide Domestic Tour Name Role Phone [facility] Unavailable Unavailable Problems Combined list of problems from Department of Defense and Veterans Affairs facilities. It does not include entries that were removed or entered in error. Problem Status Onset Date Problem Type Date of Resolution Comments Source Carcinoma of Prostate (SCT 934039326) Active Condition [facility] Enlarged prostate Active Condition [facility] Hearing Loss (SCT [id number]) Active Condition [facility] History of calculus of kidney Active Condition [facility] Hypertension Active Condition [facility] Synovial cyst of knee Active Condition Jan 14, 2024 Entered By: KANNAN BASSETT Comment: Bakers cyst- posterior aspect L knee [facility] Diagnosis: ICD-10-CM H91.90 Unspecified hearing loss, unspecified ear Active Diagnosis [facility] Diagnosis: ICD-10-CM Z46.1 Encounter for fitting and adjustment of hearing aid Active Diagnosis [facility] Diagnosis: ICD-10-CM H90.3 Sensorineural hearing loss, bilateral Active Diagnosis [facility] Diagnosis: ICD-10-CM I10 Essential (primary) hypertension Active Diagnosis [facility] Diagnosis: ICD-10-CM Z71.9 [...] TABLET BY MOUTH ONCE DAILY ORAL ACTIVE VANWAGNER ,CHRISTINE F 2023 [facility] METOPROLOL SUCCINATE 50MG TAB,SA TAKE ONE TABLET BY MOUTH ONCE DAILY ORAL ACTIVE CHRISTINE DINERO [facility] [place] [facility] TAMSULOSIN HCL 0.4MG CAP TAKE 1 CAPSULE BY MOUTH ONCE DAILY ORAL ACTIVE GREENVILLECHRISTINE GRAVES 2023 [facility] Immunizations Combined list of available immunizations from the Department of Defense and Veterans Affairs facilities. Immunization Series Date Given Administered By Site Reaction Lot Number CVX Code Drug Top Tile Decorator Status Comments Source INFLUENZA, UNSPECIFIED FORMULATION 2023 88 complet ed HISTORICA L INFORMATI ON - FROM OTHER [facility]IST[facility] RSV, BIVALENT, PROTEIN SUBUNIT RSVPREF, DILUENT RECONSTITUTED , 0.5 ML, PF 2023 305 complet ed Completed Series, HISTORICA L INFORMATI ON - FROM OTHER [facility] Vital Signs Combined list of inpatient and outpatient Vital Signs from Department of Defense and Veterans Affairs, ranging from 12 months to all on record, depending upon the facility. Vital Sign Value Date Comments Source SYSTOLIC BLOOD PRESSURE 110 05/20/19 25 13:38:33 [facility] [place] [facility] DIASTOLIC BLOOD PRESSURE 80 025 13:38:33 [facility] [place] [facility] PULSE OXIMETRY 98 05/19/2024 13:38:33 [facility] [place] [facility] WEIGHT 168 05/19/2024 13:38:33 [facility] [place] [facility] BMI 26 kg/m2 05/19/2024 13:38:33 [facility] PAIN 0 05/19/2024 13:38:33 [facility] [place] [facility] TEMPERATURE 62 05/19/2024 13:38:33 [facility] [place] [facility] PULSE 69 05/19/2024 13:38:33 [facility] RESPIRATION 16 05/19/2024 13:38:33 [facility] SYSTOLIC BLOOD PRESSURE 148 01/20/20 24 14:46:31 [facility] DIASTOLIC BLOOD PRESSURE 82 024 14:46:31 [facility] PULSE OXIMETRY 98 01/20/2024 14:46:31 [facility] WEIGHT 165.7 01/20/2024 14:46:31 [facility] BMI 26 kg/m2 01/20/2024 14:46:31 [facility] PAIN 0 01/20/2024 14:46:31 [facility] HEIGHT 67 01/20/2024 14:46:31 [facility] TEMPERATURE 97.7 01/20/2024 14:46:31 [facility] En[facility] [id number] 11/17 [facility] Encounter [id number] 12/06 [facility] OFF/OP EST JULY X REQ PHY/QHP [id number] Diagnos is: ICD-10- CM Z71.9 Portfolio Management Marketing ing, unspeci FIOR Gil E 01/13 [facility] OFFICE O/P EST LOW 20 MIN [id number] Diagnos is: ICD-10- CM I10 Essenti al (primar y) hyperte CHRISTINE Paulson 01/19 [facility] Outpatient Encounter [id number] 01/23 [facility] [place] HEARING AID EXAM BOTH EARS [id number] Diagnos is: ICD-10- CM H90.3 Sensori neural hearing loss, bilDayne Redmond E 02/01 [facility] [place] HEARING SERVICE [id number] 1. Diagnos is: ICD-10- CM Z46.1 Encount er for fitting and adjustm ent of hearing aid Dayne SAM 02/20 [facility] [place] [facility] [place] [facility] OFFICE O/P EST LOW 20 MIN [id number] Diagnos is: ICD-10- CM H91.90 Unspeci fied hearing loss, unspeci fied ear CHRISTINE DINERO 05/19 [facility] [place] [facility] Social History Combined list of available smoking, tobacco, and other social history from Department of Defense and Veterans Affairs facilities. Social History Type Response Date Comment [facility] e Tobacco smoking status NHIS [place]-TO[place]AC[place] FORMER USER 01/14/2024 [facility] [place] [facility] History of tobacco use LA-TOBACCO QUIT 15 YRS OR MORE 01/14/2024 [facility] [place] [facility]
--- OUTSIDE RECORDS SUMMARY | 2024-07-26 10:04 | XMS_ITS | Encounter Summary ---
Author Organization [facility] Address [id number] [place] [id number] Care Team Providers Care Breeding Technician Name Role Phone Physician, Pcp Unknown Primary Care Provider Dannielle vailable Encounter Details Date Type Department Care Team (Late st Contact Info) Description 02/07/2024 Lab Requisition [facility] - Main Lab [address] [place] [address] Cintia Lopez, JAYLEEN [address] [facility] [address] [place] [address] Benign prostatic hyperplasia with lower urinary tract [...] 02/07/2024 3:26 PM EST The [employer]ens [employer] Chemiluminescent Immunoassay is used. Results obtained with different assay methods or kits cannot be used interchangeably. Results cannot be interpreted as absolute evidence of the presence or absence of malignant disease. us Cintia [facility] BLOOD ORDERABLES Final Resul t [facility] ([facility]) [facility] [address] [place] [address], documented in this encounter Visit Diagnoses Diagnosis Benign prostatic hyperplasia with lower urinary tract symptoms documented in this encounter Care Teams Breeding Technician Relationship Specialty Start Date End Date Physician, Pcp Unknown PCP - General 02/07/24 02/07/24 documented as of this encounter
--- OUTSIDE RECORDS SUMMARY | 2024-07-26 10:04 | XMS_ITS | Clinical Summary ---
Author Organization [address] Address [address] [place] [address] Phone Care Team Providers Care Coding Specialist Home Health Name Role Phone Unavailable Primary Care Provider Unavailabl e Social History Tobacco Use Types Packs/Day Years [...] Vaccines (1 of 2) 06/10/1993 RSV Immunization Adult Patie nts (1 - 1-dose 75+ series) 06/10/2018 Cholesterol Screening (Lipid Panel) 02/07/2022 Depression Screening 02/07/2022 Falls Risk Assessment 02/07/2022 Social Influencers of Health Screening 02/07/2022 COVID-19 Vaccine (2023-2 5 season) 2023 Influenza Vaccine (Season Ended) 2024 HIB Vaccines Aged Out No longer eligi [...] age to complete this topic Meningococcal B Vaccine Aged Out No l onger eligible based on patient's age to complete this topic RSV Immunization Patients Un saleem 20 months Aged Out No longer eligible b ased on patient's age to complete this topic Varicella Vaccines Aged Out No longer eligible based on patient's age to complete this topic Insurance [employer]
== END 2024-07-26 09:47 | disposition home or self-care (01) ==
LOC: HO.HMCH 08:47
DX: E78.00 Pure hypercholesterolemia, unspecified (principal); M17.12 Unilateral primary osteoarthritis, left knee; N40.0 Benign prostatic hyperplasia without lower urinary tract symptoms; R73.01 Impaired fasting glucose; I10 Essential (primary) hypertension; H91.93 Unspecified hearing loss, bilateral

== ENCOUNTER → 2024-07-26 08:46 | Outpatient (BNVA) | payer MEDICARE, SELFPAY | DX: I10 Essential (primary) hypertension (principal); E78.00 Pure hypercholesterolemia, unspecified; H91.93 Unspecified hearing loss, bilateral; M17.12 Unilateral primary osteoarthritis, left knee; N40.0 Benign prostatic hyperplasia without lower urinary tract symptoms; R73.01 Impaired fasting glucose | CPT/HCPCS: 96127; 99212 ==

== ENCOUNTER 2024-11-22 09:05 | Outpatient (REF) | payer MEDICARE, SELFPAY ==
[2024-11-22 09:50] LABS: Hemoglobin A1C 134.5893 umol/L; Total Hemoglobin (HGBA1C) 3824.4282 umol/L
[2024-11-22 09:52] LABS: Appearance Urine Clear; Glucose Urine UA Negative (Negative); PH 7.5 (5.0-9.0); Specific Gravity - Urine 1.010 (1.005-1.025)
[2024-11-22 10:22] LABS: Alanine Aminotransferase 15 U/L (0-40); Albumin Level 4.6 g/dL (3.5-5.0); Alkaline Phosphatase 57 U/L (39-117); Anion Gap 10 (12-20); Aspartate Amino Transferase 26 U/L (5-37); Blood Urea Nitrogen 9 mg/dL (9-16); Calcium 9.4 mg/dL (8.4-10.2); Carbon Dioxide 31 mmol/L (22-29); Chloride 103 mmol/L (96-108); Cholesterol 203 mg/dL (<200); Estimated Glomerular Filt Rate > 60; HDL Cholesterol 52 mg/dL (>40); Potassium 3.4 mmol/L (3.3-5.1); Sodium 141 mmol/L (135-145); Total Protein 7.2 g/dL (6.5-8.0); Triglycerides 102 mg/dL (<150)
--- OUTSIDE RECORDS SUMMARY | 2024-11-22 10:40 | XMS_ITS | Clinical Summary ---
Author Organization [address] [facility] Address [address] [place] [address] Phone Care Team Providers Care Site Supervising Technical Operator Name Role Phone Jorge A Elliott MD Primary Care Provider [phone] Encounters Date Type Department Care Team Description 11/03/2024 Lab Requisition [facility] - Main Lab [address] [facility] [place] [address] Erik Jacinto MD Malignant neoplasm of prostate (CMS/HCC V24, CMS/HCC V28) from Last 3 Months Social History Tobacco [...] series) 06/10/2018 Cholesterol Screening (Lipid Panel) 02/07/2022 Falls Risk Assessment 02/07/2022 Social Influencers of Health Screening 02/07/2022 Depression Screening 03/08/2024 COVID-19 Vaccine ( - 2023-2 5 season) 2024 Influenza Vaccine (#1) 2024 HIB Vaccines Aged Out No longer [...] Diagnosis Comments PROSTATE SPECIFIC ANTIGEN DIAGNOSTIC Routine 11/03/2024 9:06 AM EDT Malignant neoplasm of prostate ([facility] V24, [facility] V28) from Last 3 Months Results * Prostate specific antigen diagnostic (11/03/2024 9:06 AM EDT) PSA 2.87 0.00 - 4.00 ng/mL LAB CHEMISTRY METHOD 11/03/2024 1:27 PM EDT [facility] Blood Venous blood specimen / Unknown 11/03/2024 9:06 AM EDT 11/03/2024 12:08 PM EDT Narrative [facility] - 11/03/2024 1:27 PM EDT The Siemens Advia Centaur Chemiluminescent Immunoassay is used. Results obtained with different assay methods or kits cannot be used interchangeably. Results cannot be interpreted as absolute evidence of the presence or absence of malignant disease. us Erik Jacinto MD LAB BLOOD ORDERABLES Final Resul t [facility] [address] [place] [address], from Last 3 Months Insurance [employer] Care Teams Site Supervising Technical Operator Relationship Specialty Start Date End Date Jorge A Elliott MD [address] [place] [address] [address] [place] [address] PCP - General Internal Medicine 11/03/24
--- OUTSIDE RECORDS SUMMARY | 2024-11-22 10:41 | XMS_ITS | Clinical Summary ---
Author Organization [facility] Address [address] [place] [address] Phone Care Team Providers Care Basketball Referee Name Role Phone Jorge A Elliott MD Primary Care Provider [phone] Allergies No known active allergies Medications metoprolol tartrate (LOPRESSOR) 50 MG tablet Take 1 tablet by mouth every morning. 07/09/2023 Active hydroCHLOROthiaz hector 25 MG tablet Take 1 tablet by mouth every morning. 07/09/2023 Active Social History Tobacco Use Types Packs/Day Years Used Date Smoking Tobacco: Former Cigarettes Smokeless Tobacco: Never Tobacco Cessation:Counseling Given: Not Answered Education Answer Date Recorded Are you interested in more education? Not on fiordaliza e 10/06/2023 Are you concerned about learning? Not on file 10/06/2023 No 10/06/2023 No 10/06/2023 Digital Access Answer Date Recorded No 10/06/2023 No 10/06/2023 Reliable internet access at home? Not on file 10/06/2023 Device with a working camera? Not on file Sex and Gender Information Value Date Recorded Sex Assigned at Not on file Legal Sex Male 12:32 PM EDT Gender Identity Not on file Sexual Orientation Not on file Last Filed Vital Signs Vital Sign Reading Time Taken Comments Blood Pressure 152/88 10/06/2023 12:46 PM EDT Pulse 56 10/06/2023 12:46 PM EDT Temperature 36.7 C (98.1 F) 10/06/2023 12:46 PM EDT Respiratory Rate 18 10/06/2023 12:46 PM EDT Oxygen Saturation 100% 10/06/2023 12:46 PM EDT Inhaled Oxygen Concentration - - Weight - - Height - - Body Mass Index - - Plan of Treatment Health Maintenance Due Date Last Done Comments Adult Td,Tdap Booster 1945 POTASSIUM LEVEL 1945 DEPRESSION SCREENING 1955 RSV VACCINE (1 - 1-dose 75+ series) 06/10/2018 PNEUMOCOCCAL VACCINES (50+ years) (2 of 2 - PCV) 01/06/2019 01/06/2018 ZOSTER VACCINES (2 of 2) 01/04/2020 11/09/2019 INFLUENZA VACCINE (#1) 2024 3, 12/11/2021, 12/20/2020, Additional history exists COVID-19 VACCINE ( season) 2024 12/11/2021, 07/10/2021, 12/21/2020, Additional history exists HEPATITIS A VACCINES Aged Out No long er eligible based on patient's age to complete this topic HIB VACCINES Aged Out No longer eligi ble based on patient's age to complete this topic MENINGOCOCCAL VACCINES (ACWY) Aged Out No longer eligible based on patient's age to complete this topic MENINGOCOCCAL VACCINES (B) Aged Out N o longer eligible based on patient's age to complete this topic Medical Devices Not on file Insurance AETNA [facility] MEDICARE REPLACEMENT AETNA [facility] MEDICARE REPLACEMENT AET[employer] PPO MEDICARE REPLACEMENT [employer] PPO MEDICARE REPLACEMENT [employer] PPO MEDICARE REPLACEMENT [employer] PPO MEDICARE REPLACEMENT Care Teams Basketball Referee Relationship Specialty Start Date End Date Jorge A Elliott MD [address] [place] [address] [place] [address] PCP - General Internal Medicine 10/06/23 Additional Source Comments The information contained in this document represents components of the legal health record. It is not the complete legal health record.[facility]
--- OUTSIDE RECORDS SUMMARY | 2024-11-22 10:41 | XMS_ITS | Encounter Summary ---
Author Organization [facility] Address [address] [place] [address] Care Team Providers Care Public Records Researcher Name Role Phone Jorge A Elliott MD Primary Care Provider [phone] Encounter Details Date Type Department Care Team (Late st Contact Info) Description 11/03/2024 Lab Requisition [facility] - Main Lab [address] [facility] [place] [address] Erik Jacinto MD [address] [facility] [address] [place] [id number] Malignant neoplasm of prostate (CMS/HCC V24, CMS/[facility] V28) Social History Tobacco Use Types Packs/Day Years [...] 9:06 AM EDT Malignant neoplasm of prostate (CMS/HCC V24, CMS/HCC V28) documented in this encounter Results * Prostate specific antigen diagnostic (11/03/2024 9:06 AM EDT) PSA 2.87 0.00 - 4.00 ng/mL LAB CHEMISTRY METHOD 11/03/2024 1:27 PM EDT [facility] Blood Venous blood specimen / Unknown 11/03/2024 9:06 AM EDT 11/03/2024 12:08 PM EDT Narrative [facility] - 11/03/2024 1:27 PM EDT The Siemens Advia Centaur Chemiluminescent Immunoassay is used. Results obtained with different assay methods or kits cannot be used interchangeably. Results cannot be interpreted as absolute evidence of the presence or absence of malignant disease. us Erik Jacinto MD LAB BLOOD ORDERABLES Final Resul t [facility] [address] [place] [address], documented in this encounter Visit Diagnoses Diagnosis Malignant neoplasm of prostate (CMS/HCC V24, CMS/HCC V28) Malignant neoplasm of prostate documented in this encounter Care Teams Public Records Researcher Relationship Specialty Start Date End Date Jorge A Elliott MD [address] [facility] [place] [address] PCP - General Internal Medicine 11/03/24 documented as of this encounter
--- OUTSIDE RECORDS SUMMARY | 2024-11-22 10:41 | XMS_ITS | Encounter Summary ---
Author Organization [facility] Address [address] [place] [address] Care Team Providers Care Electrical Cad Technician Name Role Phone Jorge A Elliott MD Primary Care Provider [phone] Encounter Details Date Type Department Care Team (Late st Contact Info) Description 02/07/[address] [facility] - Main Lab [address] [facility] [place] [address] Cintia Lopez PA [address] [facility] [address] [place] [address] Benign prostatic hyperplasia with lower urinary tract [...] LAB CHEMISTRY METHOD 02/07/2024 3:26 PM EST [facility] Blood Venous blood specimen / Unknown 02/07/2024 9:45 AM EST 02/07/2024 2:15 PM EST Narrative [facility] - 02/07/2024 3:26 PM EST The Siemens Advia Centaur Chemiluminescent Immunoassay is used. Results obtained with different assay methods or kits cannot be used interchangeably. Results cannot be interpreted as absolute evidence of the presence or absence of malignant disease. us Cintia CLEMENS LAB BLOOD ORDERABLES Final Resul t [facility] ([facility]) [facility] [address] [place] [address], documented in this encounter Visit Diagnoses Diagnosis Benign prostatic hyperplasia with lower urinary tract symptoms documented in this encounter Care Teams Electrical Cad Technician Relationship Specialty Start Date End Date Jorge A Elliott MD [address] [place] [address] PCP - General Internal Medicine 11/03/24 documented as of this encounter
== END 2024-11-22 09:06 | disposition home or self-care (01) ==
LOC: HO.LAB 09:05
DX: Z13.1 Encounter for screening for diabetes mellitus (principal); N40.0 Benign prostatic hyperplasia without lower urinary tract symptoms; I10 Essential (primary) hypertension; E78.00 Pure hypercholesterolemia, unspecified
CPT/HCPCS: 36415; 80053; 80061; 81003; 83036; 84443

== ENCOUNTER 2024-11-28 09:48 | Outpatient (AMB) | payer MEDICARE, SELFPAY ==
--- NOTE | 2024-11-28 09:50 | A.OFFPC_ITS ---
Vital Signs 11/28/24 09:51 Height 5 ft 8 in Weight 161 lb 2 oz BMI 24.5 BP 134/76 Position Sitting Respiration 18 Pulse 54 Pulse Source Pulse Oximeter Temp 97.3 F Temp Source Temporal Artery Scan Pulse Oximetry (%) 98 Oxygen Delivery Method Room Air Intake Visit Reasons: hld/htn/bph/left knee arthritis Box Office Manager Required: No Accompanied by: Self / Same As Patient Allergies No Known Allergies (No Known Allergies*) Allergy (Verified 11/28/24 10:50) Medication List - Last Reconciled 11/28/24 by JAIME Beltrán hydrochlorothiazide 25 mg PO DAILY metoprolol tartrate 50 mg PO DAILY tamsulosin 0.4 mg PO DAILY Tobacco use date assessed: 11/28/24 Fall risk assessment: No Falls in past year Last assessed Fall Risk: 11/28/24 Dental Screening Dental Screen Date: 11/28/24 Did you have a dental visit in the last 12 months?: Yes Did you have a dental problem in the last 6 months where you did not have access to dental care?: No Was dental information given to patient?: Patient has dentist HPI hld/htn/bph/left knee arthritis HPI Details The patient is an 79-year-old male presenting with benign prostatic hyperplasia. The patient also found to have prostate cancer, and has been under surveillance, with PSA being measured every 6 months. The condition was identified during a urology consultation, and the patient is currently on tamsulosin (Flomax) to manage symptoms. The patient reports that the medication may be contributing to lower blood pressure readings, with recent measurements as low as 102/60 mmHg. The patient also reports a history of hypercholesterolemia, which has remained stable but slightly elevated despite dietary modifications. The patient has been advised to reduce intake of high-cholesterol foods and is considering starting a low-dose cholesterol-lowering medication. 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 The cyst is occasionally bothersome but not painful enough to warrant further intervention at this time. [facility] Medical History Screening for diabetes mellitus Hypertension Surgical History History of colonoscopy History of surgery H/O rectal polypectomy History of tonsillectomy Family History Father Cancer Mother Heart disease Brother No problems noted. Brother No problems noted. Sister No problems noted. Sister No problems noted. Sister No problems noted. Son No problems noted. Daughter No problems noted. Daughter No problems noted. Family/Other Diabetes Social History Housing: House Alcohol intake: never Patient Tobacco Use Status: Former Tobacco user Tobacco use type: Cigarette Years Smoked: 20 years e-Cigarette/Vaping Use: Never Used Second Hand Smoke Exposure: No service: No Current occupational status: retired Current occupation: rt hand Cognitive needs: No Hearing needs: Yes Vision needs: Yes (glasses) Questionnaire Thrive Questionnaire Date Thrive assessed: 07/26/24 I am a: Patient What is your living situation today?: I have a steady place to live Within the past 12 months, did the food you bought not last and you didn't have the money to get more?: Never true Within the past 12 months, did you worry whether your food would run out before you got money to buy more?: Never true Do you have trouble paying for medicines?: No Do you have trouble getting transportation to medical appointments?: No Do you have trouble paying your heating and electricity bill?: No Do you have trouble taking care of your child, family member or friend?: No Do you have trouble with day-to-day activities such as bathing, preparing meals, shopping, managing finances, etc.?: No Are you currently unemployed and looking for a job?: No Are you interested in more education?: No Please select the resources that you would like help with: None Currently or been in a relationship where the following occur: No concerns reported THRIVE Score: 0 FUNMI-7 AMB Questionnaire FUNMI-7 Date FUNMI - 7 assessed: 07/26/24 Becoming easily annoyed or irritable: 0 = Not at all Feeling afraid as if something awful might happen: 0 = Not at all Source: Developed by Drs. Phan Frias, Maureen Ortiz, Yao Rausch and colleagues, with an educational josey from [employer]. Review of Systems Const Denies body aches, Denies chills, Denies fever(s), Denies headache(s) and Denies poor appetite Eyes Reports no additional complaints ENT Denies dysphagia, Denies dizziness, Denies headache(s) and Denies odynophagia Card Denies chest pain, Denies syncope, Denies edema, Denies irregular heart rhythm, Denies lightheadedness and Denies dyspnea Resp Denies cough and Denies dyspnea GI Denies abdominal pain, Denies constipation, Denies dysphagia, Denies diarrhea, Denies nausea, Denies odynophagia and Denies vomiting Reports no additional complaints Musc Reports joint swelling (mcgarry cyst left popliteal-mild discomfort) Skin/Breast Reports system reviewed and no additional complaints, except as documented Neuro Denies dizziness, Denies syncope and Denies headache(s) Psych Reports no additional complaints Physical exam (Primary Care) Vital Signs: Last Vital Signs Temp 97.3 F 11/28/24 09:51 Pulse 54 11/28/24 09:51 Resp 18 11/28/24 09:51 BP 134/76 11/28/24 09:51 Pulse Ox 98 11/28/24 09:51 Oxygen Delivery Method Room Air 11/28/24 09:51 BMI result Body Mass Index 24.5 Tobacco/Smoking Status: Tobacco use Status Tobacco use date assessed 11/28/24 11/28/24 09:52 Patient Tobacco Use Status Former Tobacco user 11/28/24 09:52 Tobacco use type Cigarette 11/28/24 09:52 e-Cigarette/Vaping Use Never Used 11/28/24 09:52 Thrive Assessment: Date of Thrive Assessment Date Thrive assessed 07/26/24 11/28/24 09:52 Currently or been in a relationship where the following occur: No concerns reported Const General: cooperative, healthy appearing, comfortable and no acute distress Orientation/consciousness: patient oriented x3 HENMT Head: Yes normocephalic Ears: hearing grossly normal bilaterally General nose exam: Normal external nose present Eyes General: appearance normal, both eyes and all related structures Conjunctivae: conjunctivae normal Neck Neck: Yes full ROM and Yes no lymphadenopathy Resp Effort & Inspection: normal respiratory effort Auscultation: clear to auscultation bilaterally, no crackles, no rales, no rhonchi and no wheezes Cardio Rate: regular rate Rhythm: regular rhythm General: Yes no CVA tenderness Back/Spine/Pelvis Back: no CVA tenderness Skin General skin exam: no rashes or lesions noted Neuro General: patient oriented x3 Gait exam (Neuro): Normal gait present Extrem General: Yes normal to inspection, Yes full ROM and No edema Left lower extremity: knee (mcgarry cyst) Psych Affect: normal affect Attitude: cooperative Insight: Good insight present (Psych) Judgement: Good judgement present (Psych) Results Reviewed Results Reviewed: Laboratory Tests 11/22/24 11/22/24 09:13 09:17 Sodium 141 Potassium 3.4 Chloride 103 Carbon Dioxide 31 H Anion Gap 10 L BUN 9 Creatinine 1.05 Estimated GFR > 60 Fasting Glucose 102 H Estimat Average Glucose 108 Hemoglobin A1c % 5.4 Calcium 9.4 Total Bilirubin 0.9 AST 26 ALT 15 Alkaline Phosphatase 57 Total Protein 7.2 Albumin 4.6 Triglycerides 102 Cholesterol 203 H LDL Cholesterol, Calc 131 H HDL Cholesterol 52 TSH 3.16 Urine Color Yellow Urine Appearance Clear Urine pH 7.5 Ur Specific [place] 1.010 Urine Protein Negative Urine Glucose (UA) Negative Urine Ketones Negative Urine Blood Negative Urine Nitrite Negative Ur Leukocyte Esterase Negative Coding Level of Care Code Est Pt Level 3 (64869) Diagnoses Pure hypercholesterolemia with target low density lipoprotein (LDL) cholesterol less than 130 mg/dL E78.00 Arthritis of left knee M17.12 Benign prostatic hyperplasia, unspecified whether lower urinary tract symptoms present N40.0 Lower urinary tract symptom presence: unspecified whether lower urinary tract symptoms present Impaired fasting glucose R73.01 Hypertension, unspecified type I10 Hypertension type: unspecified Bilateral hearing loss, unspecified hearing loss type H91.93 Hearing loss type: unspecified Laterality: bilateral Time Spent (min) 34 Assessment & Plan Assessment & Plan (1) Pure hypercholesterolemia with target low density lipoprotein (LDL) cholesterol less than 130 mg/dL: Code(s): E78.00 - Pure hypercholesterolemia, unspecified Category: Medical Plan: Last labs on 05/04/2024 showed: Tri 98, tch 206, ldl 132 On 11/22/2024: Triglycerides 102, total cholesterol 103, LDL 131, HDL 52 Showing not much change in previous cholesterol. Rosuvastatin 5 mg daily started We will repeat lipid panel in 3 months (2) Arthritis of left knee: Code(s): M17.12 - Unilateral primary osteoarthritis, left knee Category: Medical Plan: Evaluated by Orthopedics on 10/29/2023. At that time, the patient pain was minimal with optimal function and it was determined that the patient was not a candidate for either injections or a surgical interventions. Patient pain continues to be minimal. He does have a Mcgarry's cyst present at the left pop liteal. Patient wants to continue conservative measures given that he was told before that the because his could reoccur. We will continue to monitor (3) Benign prostate hyperplasia: Code(s): N40.0 - Benign prostatic hyperplasia without lower urinary tract symptoms Category: Medical Qualifiers: Lower urinary tract symptom presence: unspecified whether lower urinary tract symptoms present Qualified Code(s): N40.0 - Benign prostatic hyperplasia without lower urinary tract symptoms Plan: Reports incomplete emptying of bladder Continue tamsulosin 0.4 mg daily Follow up with Urology (4) Impaired fasting glucose: Code(s): R73.01 - Impaired fasting glucose Category: Medical Plan: Fasting glucose was 102 and A1c was 5.4% Reinforced low sugar/carbohydrate diet and activity as tolerated We will repeat fasting glucose and A1c in 3 months (5) Hypertension: Code(s): I10 - Essential (primary) hypertension Category: Medical Qualifiers: Hypertension type: unspecified Qualified Code(s): I10 - Essential (primary) hypertension Plan: BP in office 134/76. Systolic goal less than 140 mm Hg Reinforced low-salt diet Continue hydrochlorothiazide 25 mg daily, and metoprolol tartrate 50 mg daily (6) Hearing loss: Code(s): H91.90 - Unspecified hearing loss, unspecified ear Category: Medical Qualifiers: Hearing loss type: unspecified Laterality: bilateral Qualified Code(s): H91.93 - Unspecified hearing loss, bilateral Plan: Continue bilateral hearing aids in place Plan Patient to follow up in 3 months Orders: Orders Comprehensive Mcgrann. Panel Fast 3 Months E78.00 - Pure hypercholesterolemia, unspecified, I10 - Essential (primary) hypertension, M17.12 - Unilateral primary osteoarthritis, left knee, N40.0 - Benign prostatic hyperplasia without lower urinary tract symptoms Lipid Panel 3 Months E78.00 - Pure hypercholesterolemia, unspecified, I10 - Essential (primary) hypertension, M17.12 - Unilateral primary osteoarthritis, left knee, N40.0 - Benign prostatic hyperplasia without lower urinary tract symptoms UA CC w/rflx Micro + Cult 3 Months E78.00 - Pure hypercholesterolemia, unspecified, I10 - Essential (primary) hypertension, M17.12 - Unilateral primary osteoarthritis, left knee, N40.0 - Benign prostatic hyperplasia without lower urinary tract symptoms Erythrocyte Sedimentation Rate 3 Months E78.00 - Pure hypercholesterolemia, unspecified, I10 - Essential (primary) hypertension, M17.12 - Unilateral primary osteoarthritis, left knee, N40.0 - Benign prostatic hyperplasia without lower urinary tract symptoms Complete Blood Count Auto Diff 3 Months E78.00 - Pure hypercholesterolemia, unspecified, I10 - Essential (primary) hypertension, M17.12 - Unilateral primary osteoarthritis, left knee, N40.0 - Benign prostatic hyperplasia without lower u rinary tract symptoms TSH reflex Free T4 3 Months E78.00 - Pure hypercholesterolemia, unspecified, I10 - Essential (primary) hypertension, M17.12 - Unilateral primary osteoa rthritis, left knee, N40.0 - Benign prostatic hyperplasia without lower urinary tract symptoms CRP High Sensitivity 3 Months E78.00 - Pure hypercholesterolemia, unspecified, I10 - Essential (primary) hypertension, M17.12 - Unilateral primary osteoarthritis, left knee, N40.0 - Benign prostatic hyperplasia without lower urinary tract symptoms Medications: New rosuvastatin 5 mg PO DAILY 90 tabs 3RF
[2024-11-28 09:51] VITALS: BP 134/76; PULSE 54; RESP 18; TEMP 36.3; O2SAT 98; BMI 24.5
--- OUTSIDE RECORDS SUMMARY | 2024-11-28 11:50 | XMS_ITS | Encounter Summary ---
Author Organization [facility] Address [address] [place] [id number] Care Team Providers Care Night Warehouse Manager Name Role Phone Jorge A Elliott MD Primary Care Provider [phone] Encounter Details Date Type Department Care Team (Late st Contact Info) Description 02/07/2024 Lab Requisition [facility] - Main Lab [address] [facility] [place] [address] Cintia Lopez PA [address] [facility] [address] [place] [address] Benign prostatic hyperplasia with lower urinary tract [...] LAB CHEMISTRY METHOD 02/07/2024 3:26 PM EST [facility] Blood Venous blood specimen / Unknown 02/07/2024 9:45 AM EST 02/07/2024 2:15 PM EST Narrative [facility] - 02/07/2024 3:26 PM EST The Siemens Advia Centaur Chemiluminescent Immunoassay is used. Results obtained with different assay methods or kits cannot be used interchangeably. Results cannot be interpreted as absolute evidence of the presence or absence of malignant disease. us Cintia CLEMENS LAB BLOOD ORDERABLES Final Resul t [facility] ([facility]) [facility] [address] [place] [address], documented in this encounter Visit Diagnoses Diagnosis Benign prostatic hyperplasia with lower urinary tract symptoms documented in this encounter Care Teams Night Warehouse Manager Relationship Specialty Start Date End Date Jorge A Elliott MD [address] [place] [address] PCP - General Internal Medicine 11/03/24 documented as of this encounter
--- OUTSIDE RECORDS SUMMARY | 2024-11-28 11:50 | XMS_ITS | Encounter Summary ---
Author Organization [facility] Address [id number] [place] [address] Care Team Providers Care Nursing Program Director Name Role Phone Jorge A Elliott MD Primary Care Provider Encounter Details Date Type Department Care Team (Late st Contact Info) Description 11/03/2024 Lab Requisition [facility] - Main Lab 299 [facility] [place] [address] Erik Jacinto MD [address] [facility] [address] [place] [id number] Malignant neoplasm of prostate (CMS/HCC V24, CMS/[facility] V28) Social History Tobacco Use Types Packs/Day [...] MD LAB BLOOD ORDERABLES Final Resul t [facility] [address] [place] [address], documented in this encounter Visit Diagnoses Diagnosis Malignant neoplasm of prostate (CMS/HCC V24, CMS/HCC V28) Malignant neoplasm of prostate documented in this encounter Care Teams Nursing Program Director Relationship Specialty Start Date End Date Jorge A Elliott MD [address] [facility] [address] [place] [address] PCP - General Internal Medicine 11/03/24 documented as of this encounter
--- OUTSIDE RECORDS SUMMARY | 2024-11-28 11:50 | XMS_ITS | Clinical Summary ---
Author Organization 299 [facility] Address [address] [place] [address] Phone Care Team Providers Care Senior Devops Engineer Name Role Phone Jorge A Elliott MD Primary Care Provider [phone] Encounters Date Type Department Care Team Description 11/03/2024 Lab Requisition [facility] - Main Lab [address] [facility] [place] [address] Erik Jacinto MD Malignant neoplasm [...] 9:06 AM EDT Malignant neoplasm of prostate ([facility] V24, [facility] V28) from Last 3 Months Results * Prostate specific antigen diagnostic (11/03/2024 9:06 AM EDT) PSA 2.87 0.00 - 4.00 ng/mL LAB CHEMISTRY METHOD 11/03/2024 1:27 PM EDT [facility] Blood Venous blood specimen / Unknown 11/03/2024 9:06 AM EDT 11/03/2024 12:08 PM EDT Narrative [facility] - 11/03/2024 1:27 PM EDT The Siemens Advia Centaur Chemiluminescent Immunoassay is used. Results obtained with different assay methods or kits cannot be used interchangeably. Results cannot be interpreted as absolute evidence of the presence or absence of malignant disease. us Erik Jacinto MD LAB BLOOD ORDERABLES Final Resul t [facility] [address] [place] [address], from Last 3 Months Insurance [employer] Care Teams Senior Devops Engineer Relationship Specialty Start Date End Date Jorge A Elliott MD [address] [place] [address] [address] [place] [address] PCP - General Internal Medicine 11/03/24
--- OUTSIDE RECORDS SUMMARY | 2024-11-28 11:50 | XMS_ITS | Clinical Summary ---
Author Organization [facility] Address [address] [place] [address] Phone Care Team Providers Care Medical Device Sales Consultant Name Role Phone Jorge A Elliott MD Primary Care Provider [phone] Allergies No known active allergies Medications metoprolol [...] Medical Devices Not on file Insurance AETNA [facility] MEDICARE REPLACEMENT AETNA [facility] MEDICARE REPLACEMENT AET[employer] PPO MEDICARE REPLACEMENT [employer] PPO MEDICARE REPLACEMENT [employer] PPO MEDICARE REPLACEMENT [employer] PPO MEDICARE REPLACEMENT Care Teams Medical Device Sales Consultant Relationship Specialty Start Date End Date Jorge A Elliott MD [address] [place] [address] [place] [address] PCP - General Internal Medicine 10/06/23 Additional Source Comments The information contained in this document represents components of the legal health record. It is not the complete legal health record.[facility]
== END 2024-11-28 11:12 | disposition home or self-care (01) ==
LOC: HO.HMCH 09:49
DX: E78.00 Pure hypercholesterolemia, unspecified (principal); M17.12 Unilateral primary osteoarthritis, left knee; N40.0 Benign prostatic hyperplasia without lower urinary tract symptoms; R73.01 Impaired fasting glucose; I10 Essential (primary) hypertension; H91.93 Unspecified hearing loss, bilateral

== ENCOUNTER → 2024-11-28 09:48 | Outpatient (BNVA) | payer MEDICARE, SELFPAY | DX: I10 Essential (primary) hypertension (principal); N40.0 Benign prostatic hyperplasia without lower urinary tract symptoms; C61 Malignant neoplasm of prostate; E78.00 Pure hypercholesterolemia, unspecified; R73.01 Impaired fasting glucose; H91.93 Unspecified hearing loss, bilateral; M17.12 Unilateral primary osteoarthritis, left knee; Z79.899 Other long term (current) drug therapy | CPT/HCPCS: 99212 ==

== ENCOUNTER → 2025-01-17 08:31 | Outpatient (REF) | payer MEDICARE, SELFPAY ==
--- NOTE | 2025-01-17 08:34 | CA_ITS ---
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 Normal LV ejection fraction of 60-65% with pseudonormal filling pattern 2. Calcific aortic and mitral valve changes noted with normal cardiac valvular Dopplers 3. Normal RV systolic pressure 4. Mildly dilated ascending aorta 5. No gross pericardial effusion Findings Left Ventricle Normal left ventricular size, thickness, and systolic function. The visually estimated ejection fraction is between 60-65%. Spectral Doppler is indicative of a pseudonormal filling pattern. Right Ventricle Normal right ventricular cavity size and systolic function. Atria The left atrium is likely dilated. Interatrial shunt cannot be excluded. The right atrium is normal in size. Aortic Valve There is mild calcification of the aortic valve. There is no aortic valve stenosis. There is no aortic valve regurgitation. Mitral Valve There is mild anterior and posterior mitral leaflet thickening. There is mild mitral annular calcification. There is trace mitral valve regurgitation. There is no mitral valve stenosis. Pulmonic Valve The pulmonic valve is likely normal. Tricuspid Valve Normal tricuspid valve structure. There is trace tricuspid valve regurgitation. The right ventricular systolic pressure is normal. The right ventricular systolic pressure is 21 mmHg. Normal right atrial pressure. There is no evidence of pulmonary hypertension. Great Vessels The pulmonary artery was not well visualized. There is mild dilatation of the ascending aorta measuring 3.90 cm. Small plaque is seen in the sino tubular ridge. Venous The inferior vena cava is normal in size and collapses greater than 50% with inspiration. Pericardium/Pleural There is no evidence of pericardial effusion. Prior Study Comparison No prior study available for comparison. Measurements 2D Linear Measurements IVSd: 1.30 0.6-0.9/0.6-1.0 cm LVIDd: 4.40 3.9-5.3/4.2-5.9 cm LVIDd Index: 2.37 2.4-3.2/2.2-3.1 cm/m2 LVIDs: 2.67 2.0-3.6 cm LVPWd: 0.50 0.7-1.1 cm LA Diam: 4.00 2.7-3.8/3.0-4.0 cm LAIDs Index: 2.15 1.5-2.3 cm/m2 LV Mass: 158.79 67-162/88-224 g LV Mass Index: 85.37 43-95/49-115 g/m2 LVOT Diam: 2.20 3.0+(-)1.3 cm 2D Systolic Function EF 4C: 68.00 >55% EF 2C: 59.20 >55% EF BiP: 63.90 >55% Mitral Valve MV Pk E: 0.81 MV PK A: 0.49 MV Decel Time: 187.00 E/A: 1.60 E'Lateral: 9.79 E'Medial: 6.96 E/E' Med: 11.60 E/E' Lat: 8.30 PHT: 55.00 MVA PHT: 4.00 Decel [place]: 4.33 Aortic Valve AoV Pk Curly: 0.97 AoV Mn Curly: 0.68 AoV VTI: 0.21 AoV Pk Grad: 4.00 Aov Mn Grad: 2.00 MAMADOU Cont.VTI: 3.26 AI Pk Curly: 3.38 AI [place]: 1.66 LVOT LVOT Pk Curly: 0.88 LVOT Mn Curly: 0.59 LVOT VTI: 0.18 LVOT Pk Grad: 3.00 LVOT Mn Grad: 2.00 LVOT Diam: 2.20 LVOT Area: 3.80 Diastolic Function MV Pk E: 0.81 MV Pk A: 0.49 E/A: 1.60 E'Medial: 6.96 E/E' Med: 11.60 E' Laterial: 9.79 E/E' Lat: 8.30 Right Ventricle TAPSE (mm): 24.30 TVS' Curly: 11.20 Tricuspid Valve TR Pk Curly: 2.14 TR Pk Grad: 18.00 RA Press: 3.00 RVSP: 21.00 Great Vessels Aorta Sinus of Valsalva: 3.30 2.0-3.5 cm Ao Asc: 3.90 2.1-3.4 cm Ao Arch: 4.10 Pulmonary Veins Pulm Vein S/D 1.20 Pulmonary Valve PV Pk Curly: 0.88 Peak PV Grad: 3.00 Updated in Other Vendor System with Status of Final Neftali Mosqueda MD electronically signed on 01/17/2025 6:31:16 PM with status of Final
--- OUTSIDE RECORDS SUMMARY | 2025-01-17 08:48 | XMS_ITS | Encounter Summary ---
Author Organization [facility] Address [address] [place] [phone] Care Team Providers Care Foot Doctor Name Role Phone Jorge A Elliott MD Primary Care Provider [phone] Encounter Details Date Type Department Care Team (Late st Contact Info) Description 02/07/2024 Lab Requisition [facility] - Main Lab 299 [facility] [place] [address] Cintia Lopez PA [address] [facility] [address] [place] [address] Benign prostatic hyperplasia with lower urinary tract [...] CLEMENS LAB BLOOD ORDERABLES Final Resul t [facility] [address] [place] [address], documented in this encounter Visit Diagnoses Diagnosis Benign prostatic hyperplasia with lower urinary tract symptoms documented in this encounter Care Teams Foot Doctor Relationship Specialty Start Date End Date Jorge A Elliott MD [address] [place] [address] PCP - General Internal Medicine 11/03/24 documented as of this encounter
--- OUTSIDE RECORDS SUMMARY | 2025-01-17 08:48 | XMS_ITS | Encounter Summary ---
Author Organization [facility] Address [address] [place] [phone] Care Team Providers Care Fitter'S Assistant Name Role Phone Jorge A Elliott MD Primary Care Provider [phone] Encounter Details Date Type Department Care Team (Late st Contact Info) Description 11/03/2024 Lab Requisition [facility] - Main Lab 299 [facility] [place] [address] Erik Jacinto MD [address] [facility] 103 [place] [phone] Malignant neoplasm of prostate (CMS/HCC V24, CMS[facility] V28) Social History Tobacco Use Types Packs/Day [...] LAB CHEMISTRY METHOD 11/03/2024 1:27 PM EDT [facility] Blood Venous blood specimen / Unknown 11/03/2024 9:06 AM EDT 11/03/2024 12:08 PM EDT Narrative [facility] - 11/03/2024 1:27 PM EDT The Siemens Advia Centaur Chemiluminescent Immunoassay is used. Results obtained with different assay methods or kits cannot be used interchangeably. Results cannot be interpreted as absolute evidence of the presence or absence of malignant disease. us Erik Jacinto MD LAB BLOOD ORDERABLES Final [facility]ul t [facility] [address] [place] [address], documented in this encounter Visit Diagnoses Diagnosis Malignant neoplasm of prostate (CMS/HCC V24, CMS/HCC V28) Malignant neoplasm of prostate documented in this encounter Care Teams Fitter'S Assistant Relationship Specialty Start Date End Date Jorge A Elliott MD [address] [facility] [place] [address] PCP - General Internal Medicine 11/03/24 documented as of this encounter
--- OUTSIDE RECORDS SUMMARY | 2025-01-17 08:48 | XMS_ITS | Clinical Summary ---
Author Organization [facility] Address [address] [place] [address] Phone Care Team Providers Care Taffy Candy Maker Name Role Phone Jorge A Elliott MD Primary Care Provider [phone] Allergies No known active allergies Medications metoprolol [...] Medical Devices Not on file Insurance AETNA [facility] MEDICARE REPLACEMENT AETNA [facility] MEDICARE REPLACEMENT AETNA PPO MEDICARE REPLACEMENT [employer] PPO MEDICARE REPLACEMENT A[employer] PPO MEDICARE REPLACEMENT [employer] PPO MEDICARE REPLACEMENT Care Teams Taffy Candy Maker Relationship Specialty Start Date End Date Jorge A Elliott MD [address] [place] [address] [place] [address] PCP - General Internal Medicine 10/06/23 Additional Source Comments The information contained in this document represents components of the legal health record. It is not the complete legal health record.[facility]
--- OUTSIDE RECORDS SUMMARY | 2025-01-17 08:48 | XMS_ITS | Clinical Summary ---
Author Organization 299 [facility] Address [address] [place] [address] Phone Care Team Providers Care Campus Administrative Assistant Name Role Phone Jorge A Elliott MD Primary Care Provider [phone] Encounters Date Type Department Care Team Description 11/03/2024 Lab Requisition [facility] - Main Lab 299 [facility] [employer] [place] [address] Erik Jacinto MD Malignant neoplasm [...] Depression Screening 03/08/2024 COVID-19 Vaccine ( - 2024-2 6 season) 2024 Influenza Vaccine (#1) 2024 HIB [...] 9:06 AM EDT Malignant neoplasm of prostate ([facility] V24, [facility] V28) from Last 3 Months Results * Prostate specific antigen diagnostic (11/03/2024 9:06 AM EDT) PSA 2.87 0.00 - 4.00 ng/mL LAB CHEMISTRY METHOD 11/03/2024 1:[address] [facility] Blood Venous blood specimen / Unknown 11/03/2024 9:06 AM EDT 11/03/2024 12:[address] [facility] - 11/03/2024 1:27 PM EDT The Siemens Advia Centaur Chemiluminescent Immunoassay is used. Results obtained with different assay methods or kits cannot be used interchangeably. Results cannot be interpreted as absolute evidence of the presence or absence of malignant disease. us Erik Jacinto MD LAB BLOOD ORDERABLES Final Resul t [facility] [address] [place] [address], from Last 3 Months Insurance [employer] Care Teams Campus Administrative Assistant Relationship Specialty Start Date End Date Jorge A Elliott MD [address] [place] [address] [address] [place] [address] PCP - General Internal Medicine 11/03/24
== END ==
LOC: HO.CARD 08:31
DX: R00.1 Bradycardia, unspecified (principal); I77.819 Aortic ectasia, unspecified site
CPT/HCPCS: 93306

== ENCOUNTER → 2025-01-17 08:34 | Outpatient (BNV) | payer MEDICARE, SELFPAY | PROVIDERS: Visit Provider Internal Medicine Cardiovascular Disease | DX: I34.81 Nonrheumatic mitral (valve) annulus calcification (principal); I35.8 Other nonrheumatic aortic valve disorders; I77.810 Thoracic aortic ectasia | CPT/HCPCS: 93306 ==

== ENCOUNTER 2025-01-23 11:27 | Outpatient (REF) | payer MEDICARE, SELFPAY ==
--- NOTE | ~2025-01-23 | US_ITS ---
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 Mild plaque within the carotid bulbs. Normal color doppler and waveforms morphology. Peak systolic velocities: Right CCA: 121 cm/s. Right ICA: 61 cm/s. ICA/CCA ratio: 0.5 Right ECA: 30.1 cm/s. Right vertebral artery flow antegrade. Left CCA: 125 cm/s. Left ICA: 70 cm/s. ICA/CCA ratio: 0.3 Left ECA: 46.2 cm/s. Left vertebral artery flow antegrade. IMPRESSION: Normal carotid velocities, no significant stenosis (0-49% stenosis). This document has been electronically signed by: Tricia Granado MD on 01/23/2025 19:14:05
== END 2025-01-23 11:28 | disposition home or self-care (01) ==
LOC: HO.US 11:27
DX: H34.213 Partial retinal artery occlusion, bilateral (principal)
CPT/HCPCS: 93880

== ENCOUNTER → 2025-01-23 11:31 | Outpatient (BNV) | payer MEDICARE, SELFPAY | PROVIDERS: Visit Provider Student in an Organized Health Care Education/Training Program | DX: H34.213 Partial retinal artery occlusion, bilateral (principal) | CPT/HCPCS: 93880 ==